=== PATIENT | male | born 1955 | race Caucasian/White ===

== ENCOUNTER 2017-12-08 16:00 | Inpatient (IN) | payer MEDICARE, MEDICAID, SELFPAY ==
--- NOTE | 2017-12-08 10:41 | EKG12_ITS ---
Test Reason : CP Blood Pressure : / mmHG Vent. Rate : 081 BPM Atrial Rate : 081 BPM P-R Int : 164 ms QRS Dur : 112 ms QT Int : 364 ms P-R-T Axes : 050 019 059 degrees QTc Int : 422 ms Poor data quality, interpretation may be adversely affected Normal sinus rhythm with sinus arrhythmia Normal ECG Confirmed by PAWAN HERNANDEZ, SATHYA ([id number]), web content editor JIHAN ROBLES ([id number]) on 12/12/2017 3:17:38 PM Referred By: Confirmed By:SATHYA VILLALTA MD
[2017-12-08 16:01] VITALS: BP 150/99; PULSE 85; RESP 20; TEMP 36.7; O2SAT 98; BMI 25.4
--- NOTE | 2017-12-08 16:30 | CT_ITS ---
STUDY: CT ABDOMEN AND PELVIS WITH CONTRAST REASON FOR EXAM: Male, 61 years old. Abdominal pain RADIATION DOSAGE (If Supplied By Facility): CTDIvol = ( 16.73 ) mGy, DLP = ( 1129.23 ) mGycm TECHNIQUE: Transaxial images were obtained from the dome of the diaphragm to the symphysis pubis without oral contrast. 100ML ml of Isovue 300 contrast was administered. Sagittal and coronal images were reconstructed. Individualized dose optimization techniques were used for this CT. COMPARISON: None. FINDINGS: There is atelectasis at the lung bases. The visualized portions of the heart and pericardium are within normal limits. There are no calcified gallstones present. The gallbladder is distended. The liver is within normal limits. There are no suspicious hepatic lesions. The spleen is normal in size. The pancreas is within normal limits. The adrenal glands are within normal limits. There are no obstructing renal stones. There is no hydronephrosis. There are no focal renal lesions. Normal visualized stomach. There is no bowel obstruction or inflammation. The appendix is visualized and appears normal. There are postsurgical changes noted from prior right inguinal hernia repair. There is no evidence of a recurrent hernia. The aorta is normal in caliber. There is no abdominal or pelvic free air, free fluid or fluid collection. There is periportal lymphadenopathy. There are no destructive osseous lesions. CT/Abdomen/Pelvis WITH Contrast IMPRESSION: Distended gallbladder. No calcified gallstones present. If indicated, further evaluation with ultrasound can be performed. Periportal lymphadenopathy. No bowel obstruction or inflammation. Normal appendix. Postsurgical changes from a prior right inguinal hernia repair. No evidence of a recurrent hernia. Electronically Signed: Philip Landis, at 18:48 EDT Tel , Service support ,
--- NOTE | 2017-12-08 16:31 | ED.VISSUMM ---
- ER Visit Summary Date of Service: 12/08/17 Chief Complaint: Abdominal pain History of Present Illness: The patient is a 61 M who states that 1 hour prior to arrival he had a sudden onset of severe epigastric right upper quadrant and left upper quadrant pain that radiates into his back. He notes nausea but no vomiting. Denies any bloating or distention. No history of pancreatitis. History of small bowel obstruction. Patient had hernia surgery September 21 recovered fine from it. He denies any significant alcohol use. He is a smoker. Physical Examination: Afebrile vital signs are stable Gen: Well-nourished well-developed patient appears in pain Head: Normocephalic atraumatic Eyes: Perrl EOMI ENT: TMs clear no rhinorrhea moist mucous membranes Neck: Supple no lymphadenopathy no JVD nontender CVS: Regular rate rhythm no murmurs normal S1-S2 Respiratory: No distress clear to auscultation bilaterally chest nontender Abdomen: Soft upper abdominal tenderness to palpation with guarding nondistended normal bowel sounds no masses Back: Nontender Extremity: Nontender no edema Skin: Normal color no rash Neuro: alert orientated ?3 CN II-XII intact normal strength sensation reflexes gait cerebellar Test Results: EKG for nursing protocol shows a sinus rhythm at a rate of 81. White count 9.1 with a hemoglobin of 18.4. Glucose of 117. Lipase 599. ALT of 91 AST of 94. Total bili 1.2. Lactic acid normal at 1. Troponin less than 0.02. CT of the abdomen pelvis demonstrates a significantly distended gallbladder. Gallbladder ultrasound showed a negative sonographic Igllis. The common bile duct was 8 mm. Noted no free fluid around the gallbladder. There were probable stones in the gallbladder. Emergency Department Course and Treatment: Given the sudden onset of his symptoms I am concerned about a common bile duct stone causing gallstone pancreatitis. He is very early into his course at the time of blood draw only about 1 hour. Therefore I do not think we have seen the full rise in his lipase or liver enzymes. I gave him Zofran and Dilaudid fluids. We also gave Zosyn. Plan is admission into the hospital. Impression: 1. Gallstone pancreatitis This note was generated with Workspace dictation software. It may contain incorrect words, spelling, and punctuation that were not noted in review of the chart prior to signing ED Disposition - Plan for ED Patient: Disposition: Acute Care Hospital [facility] Chief Complaint: Abd Pain
[2017-12-08] MEDS: proMETHazine 25 MG/ML Syringe 12.5 MG IV (16:41)
[2017-12-08] MEDS: 0.9% Normal Saline 1,000 ML 125 ML IV (16:42)
[2017-12-08] MEDS: HYDROmorphone 1 MG/ML Syringe IV ×2 (16:42→17:59)
[2017-12-08 16:43] VITALS: BP 148/100; PULSE 96; RESP 16; O2SAT 96
[2017-12-08 17:18] LABS: Absolute Lymphocyte Count 2.09 X10^3/ul (0.83-4.51); Absolute Neutrophil Count 5.6 X10^3/uL (2.0-7.7); Basophil# 0.02 X10^3/uL; Basophil% 0.2 % (0-1); Eosinophil# 0.36 X10^3/uL; Hematocrit 54.2 % (40-54); Lymphocyte # 2.09 X10^3/ul (4.0); Lymphocyte % 23.1 % (19-41); Mean Corp Hgb Conc 33.9 g/gl (32-36); Mean Corpuscular Hgb 30.8 pg (27.0-32.0); Mean Corpuscular Volume 90.8 fL (80-94); Mean Platelet Vol. 10.5 fl (6.2-12.0); Monocyte# 1.02 X10^3/uL; Monocyte% 11.3 % (0-10); Neutrophil # 5.56 X10^3/uL (2.7-7.7); Neutrophil % 61.3 % (47-70); Platelet Count 260 K/mm3 (150-450); RBC Distribution Width CV 13.2 % (11.6-14.6); RBC Distribution Width SD 43.6 fl (35.1-43.9); Red Blood Count 5.97 M/mm3 (4.6-6.2); White Blood Count 9.1 K/mm3 (4.4-11.0)
[2017-12-08 17:38] LABS: ALB/GLOB Ratio 1.1 RATIO (0.9-2.4); AST(SGOT) 94 U/L (15-37); Alanine Aminotransfer ALT/SGPT 91 U/L (16-61); Albumin, Serum 4.2 g/dL (3.2-5.0); Alkaline Phosphatase 114 U/L (45-117); Amylase 96 U/L (25-115); Anion Gap 8 (5-15); BUN 15 mg/dL (7-18); BUN/Creat Ratio 14.7 RATIO (10-20); Calcium,Total 8.5 mg/dL (8.5-10.1); Chloride 103 mmol/L (98-107); Creatinine, Serum 1.02 mg/dL (0.70-1.30); EST Glomerular Filtration Rate 79 mL/min (>60); Est Glom Filt Rate - Afr Amer 96 mL/min (>60); Estimated Creatinine Clearance 99.56 ml/min; Globulin 3.9 g/dL (2.2-4.2); Glucose 117 mg/dL (74-106); Lipase 599 U/L (73-393); Protein, Total 8.1 g/dL (6.4-8.2); Sodium Level 140 mmol/L (136-145)
[2017-12-08 17:59] VITALS: BP 133/103; PULSE 106; RESP 17; O2SAT 95
[2017-12-08 18:15] LABS: Hemoglobin 18.4 g/dl (13.0-16.5); POSITIVE COUNT NO; POSITIVE DIFFERENTIAL NO; POSITIVE MORPHOLOGY NO
--- NOTE | 2017-12-08 18:54 | US_ITS ---
STUDY: ABDOMINAL ULTRASOUND - RIGHT UPPER QUADRANT REASON FOR VISIT: Male, 61 years old. Pancreatitis. Pain. TECHNIQUE: Ultrasound evaluation of the right upper quadrant was performed with real-time and static delcid-scale imaging. TECHNICAL QUALITY: Adequate. COMPARISON: CT dated 12/08/2017 FINDINGS: Liver: The liver measures 17.9 cm. There is normal echogenicity of the liver. The bile ducts are within normal limits. There is hepatic color flow. The direction of portal flow is hepatopetal. There is no demonstrated mass lesion. Gallbladder: The gallbladder is distended. The gallbladder wall measures 3 mm. There is a negative sonographic Gillis's sign. There is no pericholecystic fluid. There are multiple echogenic structures within the gallbladder, consistent with multiple gallstones. There is sludge noted in the gallbladder. Common Bile Duct (C.B.D.): The common bile duct measures 8 mm. There are no ductal stones identified. Pancreas: The pancreatic head and body are within normal limits. The tail is not well visualized. There is no demonstrated pancreatic mass or cyst. Right Kidney: Normal size of the right kidney. The right kidney measures 10.2 cm. Normal renal cortex. There is no demonstrated renal mass or cyst. There is no right hydronephrosis. US/Gallbladder IMPRESSION: Distended gallbladder with gallstones and sludge. Borderline gallbladder wall thickening. No pericholecystic fluid. Therefore, there are no definite sonographic findings of acute cholecystitis. The trolley car mechanic reports a negative sonographic Gillis sign. If concern persists, consider further imaging with a nuclear medicine hepatobiliary study. The visualized portions of the pancreas are within normal limits. Correlation with laboratory lipase value is recommended to evaluate for pancreatitis. Mildly dilated common bile duct. Ductal stones identified. Electronically Signed: Philip Landis, at 19:53 EDT Tel , Service support ,
[2017-12-08 19:08] VITALS: PULSE 102; RESP 14; O2SAT 94
[2017-12-08 19:09] LABS: Bacteria 0 SEEN /hpf (None Seen); Mucous, Urine 0 SEEN /hpf (<or=2+); Squamous Epithelial Cells - UA 0 SEEN /hpf (0-5)
[2017-12-08 19:10] LABS: Color, Urine Yellow (Yellow); Glucose, Dipstick Normal (Normal); Ketone-Dipstick Negative (Negative); Leukocyte Esterase-Dipstick Negative /ul (Negative); Nitrite-Dipstick Negative (Negative); Occult Blood-Urine Negative /ul (Negative); Protein-Dipstick 15 mg/dl (Negative); Urine Bilirubin Dipstick Negative (Negative); Urine Clarity Sl. Cloudy (Clear); Urine Urobilinogen 4 mg/dl (Normal)
[2017-12-08 19:22] LABS: White Blood Cells 0-5 SEEN /hpf (0-5)
[2017-12-08 19:25] LABS: Red Blood Cells-Urine 0-5 SEEN /hpf (0-5)
[2017-12-08] MEDS: fentaNYL 100 MCG/2 ML Ampul 75 MCG IV ×2 (20:33→23:24)
[2017-12-08] MEDS: Piperacil/Tazobactam 4.5 GM in NS100 MBP IV (20:52)
[2017-12-08 20:53] VITALS: BP 125/94; PULSE 91; RESP 13; O2SAT 95
[2017-12-08 21:45] VITALS: BMI 26.0
[2017-12-08 22:00] VITALS: BMI 26.0
[2017-12-08 22:11] VITALS: BP 113/74; PULSE 80; RESP 16; TEMP 36.8; O2SAT 95
[2017-12-08] MEDS: MELATONIN 10 MG TABLET PO (22:42)
[2017-12-08] MEDS: CYCLOBENZAPRINE HCL 5 MG TABLET PO (22:42)
--- NOTE | 2017-12-08 23:02 | HP.PCM_ITS ---
Problem List (1) Abdominal pain Status: Acute Qualifiers: Abdominal location: upper abdomen, unspecified Qualified Code(s): R10.10 - Upper abdominal pain, unspecified History of Present Illness Date of Admission: 12/08/17 Chief Complaint: Upper abdominal pain, nausea The patient is a 61 year old M was seen in the emergency room at [facility] with a chief complaint of upper abdominal pain, nausea, and diaphoresis which started approximately 3:30 PM today. Patient stated that the pain was across the entire upper abdomen, it radiated into the mid back, he described the pain as sharp in nature. Patient denies any vomiting, denies any diarrhea, he also denies any fever or chills. Evaluation in the emergency room included labs which showed a normal white blood cell count, hemoglobin was 18.4 , lipase was elevated at 599, bilirubin was 1.2, AST was 94, ALT was 91. Alkaline phosphatase was normal. Patient had a CT of his abdomen and pelvis, it showed a distended gallbladder with no calcified gallstones, there is no bowel obstruction or inflammation, appendix was visualized and was normal. Patient had an ultrasound of the abdomen performed, it showed multiple gallstones with distention of the common bile duct. Patient was given IV Zosyn in the emergency room, hospitalist service was called for admission for gallstone pancreatitis and possible cholecystitis. I talked with Dr. Reyes by phone, he will see the patient in consultation. Past Medical History Allergies No Known Allergies Allergy (Verified 12/08/17 16:01) Home Medications: Ambulatory Orders Medication Instructions Recorded Cyclobenzaprine [Flexeril] 5 mg PO QHS 08/18/15 Gabapentin [Neurontin] 600 mg PO QHS 08/18/15 Lidocaine [Lidoderm Patch] 1 patch TP DAILY 12/08/17 Melatonin 10 mg PO QHS 12/08/17 Sumatriptan Succinate [Imitrex] 50 mg PO PRN PRN 12/08/17 Surgical History: herniorrhaphy Psychiatric History: No pertinent psych hx Lives: Spouse/ Significant Other Smoking Status: Current every day smoker Tobacco Use: Cigarettes Alcohol: Rare Drugs: None - *Family History Maternal History Items: - - MS, valvular heart disease Paternal History Items: Cancer - Lung cancer Review of Systems Constitutional: Denies: Anorexia, Chills, Fever, Night Sweats, Malaise, Weakness , Weight Change, Fatigue Eyes: Denies: Blurred vision, Cataracts, Conjunctivae Inflammation, Double vision, Drainage HEENT: Denies: Difficulty Swallowing, Dysphasia, Ear Pain, Eye Pain, Hearing Changes, Nasal bleeding, Nasal Congestion, Post Nasal Drip Cardiovascular: Denies: Chest Pain, Claudication, Chest Pressure, Chest Tightness, Edema, Heaviness, Orthopnea, Palpitations, Paroxysmal Noc. Dyspnea, Syncope Respiratory: Denies: Cough, Hemoptysis, Pleuritic Pain, Shortness of Breath, Shortness of breath at rest, Shortness of breath upon exertion, Sputum production, Wheezing Gastrointestinal: Reports: Abdominal Pain, Nausea. Denies: Constipation, Diarrhea, Dyspepsia, Hematemesis, Hematochezia, Melena, Vomiting Genitourinary: Denies: Dysuria, Frequency, Hematuria, Hesitancy, Incontinence, Nocturia, Urgency Musculoskeletal: Reports: Back Pain - Patient complains of back pain which had radiated from his right upper abdomen into the mid back area. Denies: Joint Pain, Joint stiffness, Joint swelling Skin: Denies: Dryness, Jaundice, Pruritis, Rash Neurological: Denies: Balance problems, Blurred vision, Double vision, Slurred speech, Difficulty swallowing, Focal weakness, Headaches, Incoordination, Numbness, Tingling Psychiatric: Denies: Anxiety, Depression, Homicidal Ideations, Suicidal Ideations Endocrine: Denies: Change in Body Habitus, Heat/ Cold Intolerance, Polydipsia, Polyuria Hematologic/ Lymphatic: Denies: Adenopathy, Anemia, Easy Bruising, Easy Bleeding , Petechiae, Purpura VTE Information - Inpt Only VTE Present on Admission: No VTE Mechan Device Prophylaxis: SCD's VTE Pharm Prophylaxis ordered?: No Reason prophylaxis not ordered:: Treatment Not Indicated - SCD's were ordered Patient Problems: Active and Suspected Problems Abdominal pain (Acute) - Physical Exam General: Alert, Oriented x3, Cooperative, Well developed, Well nourished, - - Patient is in moderate distress due to upper abdominal pain HEENT: Atraumatic, PERRLA, EOMI, Normocephalic Oral: Moist Mucosa Neck: Supple, No JVD, Negative Carotid Bruits, No Nuchal Rigidity, Trachea Midline, Thyroid Normal Size and Texture Lungs: Clear to auscultation, Normal air movement, No rhonchi, No wheeze, No rales Cardiovascular: Regular rate, Regular Rhythm, Normal S1, Normal S2, No murmurs, No Ectopic Activity, PMI Normal, No rub noted, No Gallop Abdomen: Bowel Sounds Present, Soft, Tender - Is diffuse upper abdominal tenderness noted bilaterally, No hernias noted Extremities: No clubbing, No cyanosis, No edema, Capillary Refill Less than 3 Seconds Skin: No rashes, No breakdown Musculoskeletal: No Tenderness to Palpation of Joints or Extremities Neurological: Cranial nerves II-XII grossly intact, Neuro grossly intact, Muscle tone normal, Sensory exam intact to light touch and pain, Coordination normal Psych/Mental Status: Normal Affect, Appropriate, Alert and oriented to time, place, person, mood and affect Vital Signs Temp Pulse Resp BP Pulse Ox 98.2 F 80 16 113/74 95 12/08/17 22:11 12/08/17 22:11 12/08/17 22:11 12/08/17 22:11 12/08/17 22:11 Oxygen Delivery Method Room Air Weight: 99.564 kg Body Mass Index (BMI) 26.0 Assessment/Plan Active and Suspected Problems Abdominal pain (Acute) #1 gallstone pancreatitis-patient will be admitted to [facility], he will be seen in consultation by general surgery, IV fluids will be administered, IV analgesics will be administered, patient will be n.p.o. 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
[2017-12-08] MEDS: 0.9% NaCl Peripheral Flush Adult/Peds IV (23:24)
[2017-12-09] VITALS (9 sets, daily range): BP systolic 110–132; BP diastolic 67–83; PULSE 49–91; RESP 16–18; TEMP 36.1–36.9; O2SAT 95–99; BMI 26.0
[2017-12-09] MEDS: fentaNYL 100 MCG/2 ML Ampul IV ×6 (02:39→23:16)
[2017-12-09] MEDS: 0.9% Normal Saline 1,000 ML 200 ML IV ×2 (02:39→08:31)
[2017-12-09] MEDS: Piperacil/Tazobactam 3.375 GM/50 ML ML IV ×3 (05:42→22:31)
[2017-12-09 06:56] LABS: Absolute Lymphocyte Count 0.81 X10^3/ul (0.83-4.51); Absolute Neutrophil Count 4.3 X10^3/uL (2.0-7.7); Basophil# 0.01 X10^3/uL; Basophil% 0.2 % (0-1); Eosinophil# 0.28 X10^3/uL; Eosinophils% 4.3 % (0-5); Hematocrit 48.3 % (40-54); Hemoglobin 15.9 g/dl (13.0-16.5); Lymphocyte # 0.81 X10^3/ul (4.0); Lymphocyte % 12.4 % (19-41); Mean Corp Hgb Conc 32.9 g/gl (32-36); Mean Corpuscular Volume 91.1 fL (80-94); Mean Platelet Vol. 10.3 fl (6.2-12.0); Monocyte# 1.08 X10^3/uL; Monocyte% 16.6 % (0-10); Neutrophil # 4.33 X10^3/uL (2.7-7.7); Neutrophil % 66.3 % (47-70); Platelet Count 198 K/mm3 (150-450); RBC Distribution Width CV 13.4 % (11.6-14.6); RBC Distribution Width SD 44.7 fl (35.1-43.9); White Blood Count 6.5 K/mm3 (4.4-11.0)
[2017-12-09 07:04] LABS: POSITIVE COUNT NO; POSITIVE DIFFERENTIAL NO; POSITIVE MORPHOLOGY NO
[2017-12-09 07:17] LABS: ALB/GLOB Ratio 1.1 RATIO (0.9-2.4); AST(SGOT) 284 U/L (15-37); Alanine Aminotransfer ALT/SGPT 262 U/L (16-61); Albumin, Serum 3.2 g/dL (3.2-5.0); Alkaline Phosphatase 130 U/L (45-117); Anion Gap 5 (5-15); BUN 11 mg/dL (7-18); BUN/Creat Ratio 12.3 RATIO (10-20); Calcium,Total 7.9 mg/dL (8.5-10.1); Chloride 108 mmol/L (98-107); Creatinine, Serum 0.89 mg/dL (0.70-1.30); EST Glomerular Filtration Rate 92 mL/min (>60); Est Glom Filt Rate - Afr Amer 112 mL/min (>60); Estimated Creatinine Clearance 111.24 ml/min; Globulin 2.9 g/dL (2.2-4.2); Glucose 91 mg/dL (74-106); Lipase 154 U/L (73-393); Potassium 4.1 mmol/L (3.5-5.1); Protein, Total 6.1 g/dL (6.4-8.2); Sodium Level 140 mmol/L (136-145)
--- NOTE | 2017-12-09 08:35 | PCM.CONS.GEN ---
Problem List (1) Abdominal pain Status: Acute Qualifiers: Abdominal location: upper abdomen, unspecified Qualified Code(s): R10.10 - Upper abdominal pain, unspecified Reason for Consult Date of Consultation: 12/09/17 Reason for Consultation: Right upper quadrant pain and pancreatitis History of Present Illness: The patient is a 61 year old M who began to experience nausea and epigastric and right upper quadrant pain yesterday. He has not had any vomiting. He reports the pain does radiate to the back. He has never had any problems with gallbladder in the past. He does not describe any fevers or chills. Past Medical History Allergies No Known Allergies Allergy (Verified 12/08/17 16:01) Home Medications: Ambulatory Orders Medication Instructions Recorded Cyclobenzaprine [Flexeril] 5 mg PO QHS 08/18/15 Gabapentin [Neurontin] 600 mg PO QHS 08/18/15 Lidocaine [Lidoderm Patch] 1 patch TP DAILY 12/08/17 Melatonin 10 mg PO QHS 12/08/17 Sumatriptan Succinate [Imitrex] 50 mg PO PRN PRN 12/08/17 Surgical History: herniorrhaphy Psychiatric History: No pertinent psych hx Lives: Spouse/ Significant Other Smoking Status: Current every day smoker Tobacco Use: Cigarettes Alcohol: Rare Drugs: None - *Family History Maternal History Items: - - MS, valvular heart disease Paternal History Items: Cancer - Lung cancer Review of Systems Constitutional: Denies: Chills, Fever HEENT: Denies: Difficulty Swallowing Cardiovascular: Denies: Chest Pain Respiratory: Denies: Cough, Shortness of Breath Gastrointestinal: Reports: Abdominal Pain, Nausea. Denies: Vomiting Genitourinary: Denies: Dysuria Musculoskeletal: Reports: Back Pain Skin: Denies: Rash Neurological: Denies: Difficulty swallowing, Focal weakness Hematologic/ Lymphatic: Denies: Anemia Patient Problems: Active and Suspected Problems Abdominal pain (Acute) - Physical Exam General: Alert, Oriented x3, Cooperative, No apparent distress HEENT: Atraumatic, PERRLA, EOMI Oral: Moist Mucosa Lungs: Normal air movement Cardiovascular: Regular rate, Regular Rhythm Abdomen: Soft, Non-Distended, Tender - Tender in the epigastric region in the right upper quadrant with no guarding or rebound. Skin: No rashes Musculoskeletal: No Muscle Wasting Neurological: Cranial nerves II-XII grossly intact Psych/Mental Status: Normal Affect, Appropriate Vital Signs Temp Pulse Resp BP Pulse Ox 98.4 F 74 16 119/77 96 12/09/17 08:32 12/09/17 08:32 12/09/17 08:32 12/09/17 08:32 12/09/17 08:32 Oxygen Delivery Method Room Air Weight: 219 lb 8 oz Body Mass Index (BMI) 26.0 Intake and Output for Last 24 Hours 12/07/17 12/08/17 12/09/17 23:59 23:59 23:59 Intake Total 1679 / 1679 Balance 1679 / 1679 Laboratory Tests Past 24 Hrs 12/09/17 12/09/17 06:20 06:20 WBC 6.5 RBC 5.30 Hgb 15.9 Hct 48.3 MCV 91.1 MCH 30.0 MCHC 32.9 RDW 13.4 RDW Differential 44.7 H Plt Count 198 MPV 10.3 Immature Gran % (Auto) 0.200 Neut % (Auto) 66.3 Lymph % (Auto) 12.4 L Ashley % (Auto) 16.6 H Eos % (Auto) 4.3 Baso % (Auto) 0.2 Absolute Neuts (auto) 4.3 Absolute Lymphs (auto) 0.81 L Total Counted Not Reportable Sodium 140 Potassium 4.1 Chloride 108 H Carbon Dioxide 27.0 Anion Gap 5 BUN 11 Creatinine 0.89 Estim Creat Clear Calc 111.24 Est GFR (MDRD) Af Amer 112 Est GFR (MDRD) Non-Af 92 BUN/Creatinine Ratio 12.3 Glucose 91 Calcium 7.9 L Total Bilirubin 3.50 H AST 284 H ALT 262 H Alkaline Phosphatase 130 H Total Protein 6.1 L Albumin 3.2 Globulin 2.9 Albumin/Globulin Ratio 1.1 Lipase 154 Clinical Impression(s) from Imaging Studies Abdomen/Pelvis CT 12/08/17 16:30 IMPRESSION: Distended gallbladder. No calcified gallstones present. If indicated, further evaluation with ultrasound can be performed. Periportal lymphadenopathy. No bowel obstruction or inflammation. Normal appendix. Postsurgical changes from a prior right inguinal hernia repair. No evidence of a recurrent hernia. Electronically Signed: Philip Landis, at 18:48 EDT Tel , Service support , Gallbladder Ultrasound 12/08/17 18:54 IMPRESSION: Distended gallbladder with gallstones and sludge. Borderline gallbladder wall thickening. No pericholecystic fluid. Therefore, there are no definite sonographic findings of acute cholecystitis. The die maker bench stamping reports a negative sonographic Gillis sign. If concern persists, consider further imaging with a nuclear medicine hepatobiliary study. The visualized portions of the pancreas are within normal limits. Correlation with laboratory lipase value is recommended to evaluate for pancreatitis. Mildly dilated common bile duct. Ductal stones identified. Electronically Signed: Philip Landis, at 19:53 EDT Tel , Service support , Assessment/Plan Active and Suspected Problems Abdominal pain (Acute) 61-year-old male with obstructive jaundice and gallstone pancreatitis and possible acute cholecystitis 1. I did inform the patient that he has borderline thickening of his gallbladder and he may have acute cholecystitis on top of obstructive jaundice and gallstone pancreatitis. His lipase has fallen today. His liver enzymes however have gone up. I explained that this is likely due to a gallstone obstructing his common bile duct. I recommended ERCP. 2. I discussed ERCP in detail with the patient including the risk benefits alternatives. I stalin a diagram for him explaining what I would do and I explained the risks including but not limited to bleeding, perforation of the bile duct or bowels, pancreatitis, infection. The patient understands risks and is willing to proceed with surgery. 3. I recommend continuing n.p.o. on Zosyn for now in case he does have acute cholecystitis. 4. I explained that normally would not be an emergency to take his gallbladder out after ERCP and he could wait until Tuesday however he does have borderline thickening of the gallbladder and right upper quadrant pain. It is possible that he has acute cholecystitis and may need his gallbladder out tomorrow instead. The patient understands and is willing to proceed with surgery tomorrow for laparoscopic cholecystectomy if needed. Enrrique Reyes MD Pager: [facility] [address], [address] [place] [address] Office:
--- NOTE | 2017-12-09 08:38 | CON.PCM_ITS ---
Problem List (1) Abdominal pain Status: Acute Qualifiers: Abdominal location: upper abdomen, unspecified Qualified Code(s): R10.10 - Upper abdominal pain, unspecified Reason for Consult Date of Consultation: 12/09/17 Reason for Consultation: Right upper quadrant pain and pancreatitis History of Present Illness: The patient is a 61 year old M who began to experience nausea and epigastric and right upper quadrant pain yesterday. He has not had any vomiting. He reports the pain does radiate to the back. He has never had any problems with gallbladder in the past. He does not describe any fevers or chills. Past Medical History Allergies No Known Allergies Allergy (Verified 12/08/17 16:01) Home Medications: Ambulatory Orders Medication Instructions Recorded Cyclobenzaprine [Flexeril] 5 mg PO QHS 08/18/15 Gabapentin [Neurontin] 600 mg PO QHS 08/18/15 Lidocaine [Lidoderm Patch] 1 patch TP DAILY 12/08/17 Melatonin 10 mg PO QHS 12/08/17 Sumatriptan Succinate [Imitrex] 50 mg PO PRN PRN 12/08/17 Surgical History: herniorrhaphy Psychiatric History: No pertinent psych hx Lives: Spouse/ Significant Other Smoking Status: Current every day smoker Tobacco Use: Cigarettes Alcohol: Rare Drugs: None - *Family History Maternal History Items: - - MS, valvular heart disease Paternal History Items: Cancer - Lung cancer Review of Systems Constitutional: Denies: Chills, Fever HEENT: Denies: Difficulty Swallowing Cardiovascular: Denies: Chest Pain Respiratory: Denies: Cough, Shortness of Breath Gastrointestinal: Reports: Abdominal Pain, Nausea. Denies: Vomiting Genitourinary: Denies: Dysuria Musculoskeletal: Reports: Back Pain Skin: Denies: Rash Neurological: Denies: Difficulty swallowing, Focal weakness Hematologic/ Lymphatic: Denies: Anemia Patient Problems: Active and Suspected Problems Abdominal pain (Acute) - Physical Exam General: Alert, Oriented x3, Cooperative, No apparent distress HEENT: Atraumatic, PERRLA, EOMI Oral: Moist Mucosa Lungs: Normal air movement Cardiovascular: Regular rate, Regular Rhythm Abdomen: Soft, Non-Distended, Tender - Tender in the epigastric region in the right upper quadrant with no guarding or rebound. Skin: No rashes Musculoskeletal: No Muscle Wasting Neurological: Cranial nerves II-XII grossly intact Psych/Mental Status: Normal Affect, Appropriate Vital Signs Temp Pulse Resp BP Pulse Ox 98.4 F 74 16 119/77 96 12/09/17 08:32 12/09/17 08:32 12/09/17 08:32 12/09/17 08:32 12/09/17 08:32 Oxygen Delivery Method Room Air Weight: 219 lb 8 oz Body Mass Index (BMI) 26.0 Intake and Output for Last 24 Hours 12/07/17 12/08/17 12/09/17 23:59 23:59 23:59 Intake Total 1679 / 1679 Balance 1679 / 1679 Laboratory Tests Past 24 Hrs 12/09/17 12/09/17 06:20 06:20 WBC 6.5 RBC 5.30 Hgb 15.9 Hct 48.3 MCV 91.1 MCH 30.0 MCHC 32.9 RDW 13.4 RDW Differential 44.7 H Plt Count 198 MPV 10.3 Immature Gran % (Auto) 0.200 Neut % (Auto) 66.3 Lymph % (Auto) 12.4 L [place] % (Auto) 16.6 H Eos % (Auto) 4.3 Baso % (Auto) 0.2 Absolute Neuts (auto) 4.3 Absolute Lymphs (auto) 0.81 L Total Counted Not Reportable Sodium 140 Potassium 4.1 Chloride 108 H Carbon Dioxide 27.0 Anion Gap 5 BUN 11 Creatinine 0.89 Estim Creat Clear Calc 111.24 Est GFR (MDRD) Af Amer 112 Est GFR (MDRD) Non-Af 92 BUN/Creatinine Ratio 12.3 Glucose 91 Calcium 7.9 L Total Bilirubin 3.50 H AST 284 H ALT 262 H Alkaline Phosphatase 130 H Total Protein 6.1 L Albumin 3.2 Globulin 2.9 Albumin/Globulin Ratio 1.1 Lipase 154 Clinical Impression(s) from Imaging Studies Abdomen/Pelvis CT 12/08/17 16:30 IMPRESSION: Distended gallbladder. No calcified gallstones present. If indicated, further evaluation with ultrasound can be performed. Periportal lymphadenopathy. No bowel obstruction or inflammation. Normal appendix. Postsurgical changes from a prior right inguinal hernia repair. No evidence of a recurrent hernia. Electronically Signed: Philip Landis, at 18:48 EDT Tel , Service support , Gallbladder Ultrasound 12/08/17 18:54 IMPRESSION: Distended gallbladder with gallstones and sludge. Borderline gallbladder wall thickening. No pericholecystic fluid. Therefore, there are no definite sonographic findings of acute cholecystitis. The clarity developer reports a negative sonographic Gillis sign. If concern persists, consider further imaging with a nuclear medicine hepatobiliary study. The visualized portions of the pancreas are within normal limits. Correlation with laboratory lipase value is recommended to evaluate for pancreatitis. Mildly dilated common bile duct. Ductal stones identified. Electronically Signed: Philip Landis, at 19:53 EDT Tel , Service support , Assessment/Plan Active and Suspected Problems Abdominal pain (Acute) 61-year-old male with obstructive jaundice and gallstone pancreatitis and possible acute cholecystitis 1. I did inform the patient that he has borderline thickening of his gallbladder and he may have acute cholecystitis on top of obstructive jaundice and gallstone pancreatitis. His lipase has fallen today. His liver enzymes however have gone up. I explained that this is likely due to a gallstone obstructing his common bile duct. I recommended ERCP. 2. I discussed ERCP in detail with the patient including the risk benefits alternatives. I stalin a diagram for him explaining what I would do and I explained the risks including but not limited to bleeding, perforation of the bile duct or bowels, pancreatitis, infection. The patient understands risks and is willing to proceed with surgery. 3. I recommend continuing n.p.o. on Zosyn for now in case he does have acute cholecystitis. 4. I explained that normally would not be an emergency to take his gallbladder out after ERCP and he could wait until Tuesday however he does have borderline thickening of the gallbladder and right upper quadrant pain. It is possible that he has acute cholecystitis and may need his gallbladder out tomorrow instead. The patient understands and is willing to proceed with surgery tomorrow for laparoscopic cholecystectomy if needed. Enrrique Reyes MD Pager: [facility] [address], [address] [place] [address] Office:
--- NOTE | 2017-12-09 09:30 | GALL_PTH ---
PATIENT: NARENDRA LAI LOC: MS3 U#:[id number] AGE/SX: 61/M ROOM: NH323 RE12/08/[address]: Dr. Chani Shepherd DO : 1955 BED: 1 DIS: 12/11/2017 SPEC #: [id number] RECD: 12/12/17 07:39 STATUS: RUTH ANN REJanneth #: [id number] FLAQUITA: 12/09/17 09:[address]: Enrrique Reyes DEPT: SURGICAL PATHOLOGY RECD BY: Wyatt Spicer ENTERED: 12/12/17 11:05 SP TYPE: GALLBLADDE OTHR DR: MD Dr. Chani Coronel DO Dr. Mark Tereletsky, DO Out of [facility] Doctor Tissues: Gallbladder, NOS Procedures: Surgery Specimen Level III Comments: @ Ordering doctor for SUIII edited from to @ by JOLYNN at 12/12/17 1519 @ Submitting doctor edited from to @ by RGOOD at 12/12/17 1519 HEADER OPERATION: Laparoscopic cholecystectomy with IOC PRE-OP DIAGNOSIS: Cholecystitis TISSUE SUBMITTED: Gallbladder MICROSCOPIC DIAGNOSIS Gallbladder, cholecystectomy: Chronic cholecystitis and cholelithiasis. Adherent hepatic tissue with mild chronic inflammation and vascular congestion. AM:jennifer 12/13/17 MICROSCOPIC DESCRIPTION Slides are reviewed. GROSS DESCRIPTION Received is one container labeled with the patient's name and designated gallbladder. The specimen consists of a previously opened gallbladder measuring 9 x 4 x 2 cm. The external surface is smooth and glistening. Focally, it is granular, hemorrhagic and contains cautery artifact. The lumen of the gallbladder contains several chalky white calculi ranging in size from 0.2 to 0.7 cm. The gallbladder mucosa is bile-stained. No distinct mass lesions are identified. The gallbladder wall averages 0.2 cm in thickness. Quality Management Coordinator sections of the gallbladder and the cystic duct are submitted in one cassette. / AM:jennifer 12/12/17 TC:3 CPT: 19776
--- NOTE | 2017-12-09 13:29 | NURSING ---
REPORT CALLED TO ENDO AROUND [id number]
--- NOTE | 2017-12-09 14:00 | CASEMGMT ---
RN CM attempted to compete face to face with patient. Patient is not in room and is having a procedure done. RN CM will attempt to complete assessment at a later time.
--- NOTE | 2017-12-09 14:10 | RAD_ITS ---
STUDY: ERCP. REASON FOR EXAM: Male, 61 years old. Retained common bile duct stone. FLUOROSCOPY TIME (if supplied): (2:06) minutes/seconds TECHNIQUE: An ERCP was performed by the surgeon. Contrast was injected into the common bile duct. COMPARISON: None. FINDINGS: A small filling defect is seen in the distal common bile duct. A balloon catheter was then placed for stone removal. RAD/ERCP Biliary Only IMPRESSION: ERCP for common bile duct stone removal. Electronically Signed: Tomas Avalos MD at 15:54 EDT Tel [phone], Service support ,
--- NOTE | 2017-12-09 14:17 | CASEMGMT ---
See RN CM Assessment Link. DC PLAN: home. Pt for nila hendrix 12/09. No dc needs identified. Hilary DEL ANGELN RN ACM
--- NOTE | 2017-12-09 14:44 | PCM.PROGNOTE ---
Patient Problems: Active and Suspected Problems Abdominal pain (Acute) Subjective: Pt complains of midepigastric and RUQ pain radiating in to the back. He denies diarrhea or constipation. He reported fevers and chills yesterday which have resolved. He thought he noticed his hands turning yellow. He is agreeable to ERCP and possible cholecystectomy if need be. No nausea or vomiting. States only other medical problem is post herpetic neuralgia for which he is on neurontin. - Physical Exam General: Alert, Oriented x3, Cooperative HEENT: Atraumatic, PERRLA, EOMI, Normocephalic Neck: Supple, No JVD, Negative Carotid Bruits Lungs: Clear to auscultation, Normal air movement Cardiovascular: Regular rate, No murmurs Abdomen: Hypoactive Bowel Sounds, Guarding - mild guarding., Tender - to light palp RUQ, epigastric, LUQ. Extremities: No edema, Capillary Refill Less than 3 Seconds Skin: No rashes, No breakdown Musculoskeletal: No Tenderness to Palpation of Joints or Extremities Neurological: Cranial nerves II-XII grossly intact Psych/Mental Status: Normal Affect, Appropriate, Alert and oriented to time, place, person, mood and affect Vital Signs Temp Pulse Resp BP Pulse Ox 97.8 F 91 18 123/79 H 98 12/09/17 12:20 12/09/17 12:20 12/09/17 12:20 12/09/17 12:20 12/09/17 12:20 Oxygen Delivery Method Room Air Weight: 99.564 kg Body Mass Index (BMI) 26.0 Intake and Output for Last 24 Hours 12/07/17 12/08/17 12/09/17 23:59 23:59 23:59 Intake Total 3006 / 3006 Balance 3006 / 3006 Laboratory Tests Past 24 Hrs 12/09/17 12/09/17 06:20 06:20 WBC 6.5 RBC 5.30 Hgb 15.9 Hct 48.3 MCV 91.1 MCH 30.0 MCHC 32.9 RDW 13.4 RDW Differential 44.7 H Plt Count 198 MPV 10.3 Immature Gran % (Auto) 0.200 Neut % (Auto) 66.3 Lymph % (Auto) 12.4 L [place] % (Auto) 16.6 H Eos % (Auto) 4.3 Baso % (Auto) 0.2 Absolute Neuts (auto) 4.3 Absolute Lymphs (auto) 0.81 L Total Counted Not Reportable Sodium 140 Potassium 4.1 Chloride 108 H Carbon Dioxide 27.0 Anion Gap 5 BUN 11 Creatinine 0.89 Estim Creat Clear Calc 111.24 Est GFR (MDRD) Af Amer 112 Est GFR (MDRD) Non-Af 92 BUN/Creatinine Ratio 12.3 Glucose 91 Calcium 7.9 L Total Bilirubin 3.50 H AST 284 H ALT 262 H Alkaline Phosphatase 130 H Total Protein 6.1 L Albumin 3.2 Globulin 2.9 Albumin/Globulin Ratio 1.1 Lipase 154 Medical Necessity - Tobacco Use Smoking Status: Current every day smoker Tobacco Use: Cigarettes Assessment/Plan Active and Suspected Problems Abdominal pain (Acute) 1. Acute gallstone pancreatitis - ERCP today. Concern for cholangitis. Reported fevers and chills at home but afebrile here. Elevated bili but his eyes and hands do not appear jaundiced at this time. Significant RUQ pain. Lipase decreased. Liver enzymes are increased. Continue Zosyn. ERCP done. CT abdomen showed distended gallbladder, periportal lymphadenopathy. Dr. Reyes is following. No leukocytosis or fever. 2.Postherpetic neuralgia - neurontin. DVT ppx: SCDs DC planning: dispo pending results of ERCP and need for further surgery. This patient was seen by Jonas Boo PA-C under the supervision of Doctor Shepherd.
--- NOTE | 2017-12-09 15:00 | PCM.OPRPT ---
Problem List (1) Abdominal pain Status: Acute Qualifiers: Abdominal location: upper abdomen, unspecified Qualified Code(s): R10.10 - Upper abdominal pain, unspecified (2) Choledocholithiasis with obstruction Status: Acute Qualifiers: Cholecystitis presence: without cholecystitis Qualified Code(s): K80.51 - Calculus of bile duct without cholangitis or cholecystitis with obstruction Report of Operation Date of Procedure: 12/09/17 Pre-Operative Diagnosis: Obstructive jaundice Post-Operative Diagnosis: Choledocholithiasis with obstruction Surgery/Procedure Performed:: ERCP with sphincterotomy and stone removal Description of Procedure: After describing the risks of the procedure as well as the procedure in detail informed consent was obtained. Patient was brought to the operating room and general anesthesia was induced. The patient was then placed in a semi-prone position. Next, the side-viewing endoscope was placed into the mouth and down into the stomach and advanced into the duodenum. The ampulla was located. A sphinctertome was used to cannulate the common bile duct and location was confirmed on fluoroscopy. The guidewire was placed in the common bile duct and using sphincterotome and electrocautery a sphincterotomy was performed. Hemostasis was good. Next the sphincterotome was removed leaving the guidewire in the common bile duct. A balloon was then introduced over the guidewire and the common bile duct and several sweeps were performed. There was a small stone removed from the common bile duct. Once the duct was adequately clear of stones. The balloon was removed as well as the guidewire. The side-viewing scope was then withdrawn back into the stomach and the stomach was suctioned. Next, the scope was removed. The patient was taken to PACU in stable condition. The patient tolerated the procedure well.
[2017-12-09] MEDS: 0.9% NaCl Peripheral Flush Adult/Peds IV ×3 (15:56→23:16)
[2017-12-09] MEDS: Lidocaine 5% Patch 1 PATCH TOPICAL (16:10)
[2017-12-09] MEDS: 0.9% Normal Saline 1,000 ML 125 ML IV (17:01)
[2017-12-09] MEDS: MELATONIN 10 MG TABLET PO (22:30)
[2017-12-09] MEDS: CYCLOBENZAPRINE HCL 5 MG TABLET PO (22:30)
[2017-12-09] MEDS: Gabapentin 600 MG Tablet PO (22:30)
[2017-12-10] VITALS (12 sets, daily range): BP systolic 109–164; BP diastolic 71–94; PULSE 54–110; RESP 14–18; TEMP 36.5–37.2; O2SAT 92–98; BMI 26.0
[2017-12-10] MEDS: 0.9% Normal Saline 1,000 ML 125 ML IV ×3 (03:30→23:41)
[2017-12-10] MEDS: fentaNYL 100 MCG/2 ML Ampul IV (04:13)
[2017-12-10] MEDS: Piperacil/Tazobactam 3.375 GM/50 ML ML IV (05:17)
[2017-12-10] MEDS: Morphine 4 MG/ML Syringe IV (05:17)
[2017-12-10 06:55] LABS: Absolute Lymphocyte Count 1.07 X10^3/ul (0.83-4.51); Basophil# 0.04 X10^3/uL; Eosinophil# 0.32 X10^3/uL; Eosinophils% 7.8 % (0-5); Hematocrit 44.9 % (40-54); Hemoglobin 14.8 g/dl (13.0-16.5); Lymphocyte # 1.07 X10^3/ul (4.0); Lymphocyte % 26.2 % (19-41); Mean Corpuscular Hgb 30.3 pg (27.0-32.0); Mean Corpuscular Volume 91.8 fL (80-94); Mean Platelet Vol. 10.1 fl (6.2-12.0); Monocyte# 0.66 X10^3/uL; Monocyte% 16.1 % (0-10); Neutrophil % 48.9 % (47-70); Platelet Count 204 K/mm3 (150-450); RBC Distribution Width CV 13.7 % (11.6-14.6); RBC Distribution Width SD 45.6 fl (35.1-43.9); Red Blood Count 4.89 M/mm3 (4.6-6.2); White Blood Count 4.1 K/mm3 (4.4-11.0)
--- NOTE | 2017-12-10 06:55 | PCM.PN.SRG ---
Patient Problems: Active and Suspected Problems Abdominal pain (Acute) Choledocholithiasis with obstruction (Acute) Subjective: Patient reports he is still having epigastric and right upper quadrant pain. He does not have any nausea or vomiting. He reports he is passing a little bit of gas. - Physical Exam General: Alert, Oriented x3, Cooperative, No apparent distress HEENT: Atraumatic, PERRLA, EOMI Oral: Moist Mucosa Lungs: Normal air movement Cardiovascular: Regular rate, Regular Rhythm Abdomen: Soft, Non-Distended, Tender - Tender in the right upper quadrant no guarding or rebound Musculoskeletal: No Muscle Wasting Vital Signs Temp Pulse Resp BP Pulse Ox 97.7 F L 54 L 16 109/73 96 12/10/17 01:18 12/10/17 01:18 12/10/17 01:18 12/10/17 01:18 12/10/17 01:18 Oxygen Delivery Method Room Air Weight: 219 lb 8.017 oz Body Mass Index (BMI) 26.0 Intake and Output for Last 24 Hours 12/08/17 12/09/17 12/10/17 23:59 23:59 23:59 Intake Total 3906 / 3906 2502.8 / 2502.8 Output Total 475 / 475 Balance 3906 / 3906 2027.8 / 2027.8 Laboratory Tests Past 24 Hrs 12/09/17 12/09/17 12/10/17 06:20 06:20 06:20 WBC 6.5 Pending RBC 5.30 Pending Hgb 15.9 Pending Hct 48.3 Pending MCV 91.1 Pending MCH 30.0 Pending MCHC 32.9 Pending RDW 13.4 Pending RDW Differential 44.7 H Pending Plt Count 198 Pending MPV 10.3 Immature Gran % (Auto) 0.200 Neut % (Auto) 66.3 Pending Lymph % (Auto) 12.4 L [place] % (Auto) 16.6 H Eos % (Auto) 4.3 Baso % (Auto) 0.2 Absolute Neuts (auto) 4.3 Pending Absolute Lymphs (auto) 0.81 L Total Counted Not Reportable Pending Sodium 140 Potassium 4.1 Chloride 108 H Carbon Dioxide 27.0 Anion Gap 5 BUN 11 Creatinine 0.89 Estim Creat Clear Calc 111.24 Est GFR (MDRD) Af Amer 112 Est GFR (MDRD) Non-Af 92 BUN/Creatinine Ratio 12.3 Glucose 91 Calcium 7.9 L Total Bilirubin 3.50 H AST 284 H ALT 262 H Alkaline Phosphatase 130 H Total Protein 6.1 L Albumin 3.2 Globulin 2.9 Albumin/Globulin Ratio 1.1 Lipase 154 12/10/17 06:20 WBC RBC Hgb Hct MCV MCH MCHC RDW RDW Differential Plt Count MPV Immature Gran % (Auto) Neut % (Auto) Lymph % (Auto) [place] % (Auto) Eos % (Auto) Baso % (Auto) Absolute Neuts (auto) Absolute Lymphs (auto) Total Counted Sodium Pending Potassium Pending Chloride Pending Carbon Dioxide Pending Anion Gap Pending BUN Pending Creatinine Pending Estim Creat Clear Calc Est GFR (MDRD) Af Amer Pending Est GFR (MDRD) Non-Af Pending BUN/Creatinine Ratio Pending Glucose Pending Calcium Pending Total Bilirubin Pending AST Pending ALT Pending Alkaline Phosphatase Pending Total Protein Pending Albumin Pending Globulin Albumin/Globulin Ratio Lipase Clinical Impression(s) from Imaging Studies ERCP X-Ray 12/09/17 14:10 IMPRESSION: ERCP for common bile duct stone removal. Electronically Signed: Tomas Avalos MD at 15:54 EDT Tel [phone], Service support , Medical Necessity - Tobacco Use Smoking Status: Current every day smoker Tobacco Use: Cigarettes Assessment/Plan Active and Suspected Problems Abdominal pain (Acute) Choledocholithiasis with obstruction (Acute) 61-year-old male with choledocholithiasis and obstructive jaundice and possible acute cholecystitis 1. The patient had successful ERCP with stone removal yesterday in OR. LFTs are pending for today. 2. The patient still has right upper quadrant pain and on his ultrasound yesterday he had borderline thickening of the gallbladder. I believe he may have acute cholecystitis on top of his choledocholithiasis. I would like to taken today for laparoscopic cholecystectomy both to remove the possibly infected gallbladder and to prevent further episodes of obstructive jaundice. 3. I discussed the procedure in detail with the patient. I discussed the risks, benefits, and alternatives of the procedure. I discussed the risks including but not limited to bleeding, infection, injury to surrounding organs such as the liver, bile duct, bowels. I did discuss the possibility of having to convert to an open procedure as well as the possibility that if any injuries occurred this may necessitate further surgery at a tertiary care center. The patient agrees to proceed with the procedure. 4. I will also check a lipase to check for postoperative pancreatitis flareup Enrrique Reyes MD Pager: [facility] [address] [place] [address] [address] [place] [address] Office:
--- NOTE | 2017-12-10 06:58 | PN.SURG_ITS ---
Patient Problems: Active and Suspected Problems Abdominal pain (Acute) Choledocholithiasis with obstruction (Acute) Subjective: Patient reports he is still having epigastric and right upper quadrant pain. He does not have any nausea or vomiting. He reports he is passing a little bit of gas. - Physical Exam General: Alert, Oriented x3, Cooperative, No apparent distress HEENT: Atraumatic, PERRLA, EOMI Oral: Moist Mucosa Lungs: Normal air movement Cardiovascular: Regular rate, Regular Rhythm Abdomen: Soft, Non-Distended, Tender - Tender in the right upper quadrant no guarding or rebound Musculoskeletal: No Muscle Wasting Vital Signs Temp Pulse Resp BP Pulse Ox 97.7 F L 54 L 16 109/73 96 12/10/17 01:18 12/10/17 01:18 12/10/17 01:18 12/10/17 01:18 12/10/17 01:18 Oxygen Delivery Method Room Air Weight: 219 lb 8.017 oz Body Mass Index (BMI) 26.0 Intake and Output for Last 24 Hours 12/08/17 12/09/17 12/10/17 23:59 23:59 23:59 Intake Total 3906 / 3906 2502.8 / 2502.8 Output Total 475 / 475 Balance 3906 / 3906 2027.8 / 2027.8 Laboratory Tests Past 24 Hrs 12/09/17 12/09/17 12/10/17 06:20 06:20 06:20 WBC 6.5 Pending RBC 5.30 Pending Hgb 15.9 Pending Hct 48.3 Pending MCV 91.1 Pending MCH 30.0 Pending MCHC 32.9 Pending RDW 13.4 Pending RDW Differential 44.7 H Pending Plt Count 198 Pending MPV 10.3 Immature Gran % (Auto) 0.200 Neut % (Auto) 66.3 Pending Lymph % (Auto) 12.4 L [place] % (Auto) 16.6 H Eos % (Auto) 4.3 Baso % (Auto) 0.2 Absolute Neuts (auto) 4.3 Pending Absolute Lymphs (auto) 0.81 L Total Counted Not Reportable Pending Sodium 140 Potassium 4.1 Chloride 108 H Carbon Dioxide 27.0 Anion Gap 5 BUN 11 Creatinine 0.89 Estim Creat Clear Calc 111.24 Est GFR (MDRD) Af Amer 112 Est GFR (MDRD) Non-Af 92 BUN/Creatinine Ratio 12.3 Glucose 91 Calcium 7.9 L Total Bilirubin 3.50 H AST 284 H ALT 262 H Alkaline Phosphatase 130 H Total Protein 6.1 L Albumin 3.2 Globulin 2.9 Albumin/Globulin Ratio 1.1 Lipase 154 12/10/17 06:20 WBC RBC Hgb Hct MCV MCH MCHC RDW RDW Differential Plt Count MPV Immature Gran % (Auto) Neut % (Auto) Lymph % (Auto) [place] % (Auto) Eos % (Auto) Baso % (Auto) Absolute Neuts (auto) Absolute Lymphs (auto) Total Counted Sodium Pending Potassium Pending Chloride Pending Carbon Dioxide Pending Anion Gap Pending BUN Pending Creatinine Pending Estim Creat Clear Calc Est GFR (MDRD) Af Amer Pending Est GFR (MDRD) Non-Af Pending BUN/Creatinine Ratio Pending Glucose Pending Calcium Pending Total Bilirubin Pending AST Pending ALT Pending Alkaline Phosphatase Pending Total Protein Pending Albumin Pending Globulin Albumin/Globulin Ratio Lipase Clinical Impression(s) from Imaging Studies ERCP X-Ray 12/09/17 14:10 IMPRESSION: ERCP for common bile duct stone removal. Electronically Signed: Tomas Avalos MD at 15:54 EDT Tel [phone], Service support , Medical Necessity - Tobacco Use Smoking Status: Current every day smoker Tobacco Use: Cigarettes Assessment/Plan Active and Suspected Problems Abdominal pain (Acute) Choledocholithiasis with obstruction (Acute) 61-year-old male with choledocholithiasis and obstructive jaundice and possible acute cholecystitis 1. The patient had successful ERCP with stone removal yesterday in OR. LFTs are pending for today. 2. The patient still has right upper quadrant pain and on his ultrasound yesterday he had borderline thickening of the gallbladder. I believe he may have acute cholecystitis on top of his choledocholithiasis. I would like to taken today for laparoscopic cholecystectomy both to remove the possibly infected gallbladder and to prevent further episodes of obstructive jaundice. 3. I discussed the procedure in detail with the patient. I discussed the risks , benefits, and alternatives of the procedure. I discussed the risks including but not limited to bleeding, infection, injury to surrounding organs such as the liver, bile duct, bowels. I did discuss the possibility of having to convert to an open procedure as well as the possibility that if any injuries occurred this may necessitate further surgery at a tertiary care center. The patient agrees to proceed with the procedure. 4. I will also check a lipase to check for postoperative pancreatitis flareup Enrrique Reyes MD Pager: [facility] [address] [place] [address] [address] [place] [address] Office:
[2017-12-10 07:01] LABS: POSITIVE COUNT NO; POSITIVE DIFFERENTIAL NO; POSITIVE MORPHOLOGY NO
--- NOTE | 2017-12-10 07:06 | RAD_ITS ---
PROCEDURE: INTRAOPERATIVE CHOLANGIOGRAM. REASON FOR EXAM: Male, 61 years old. Cholelithiasis, cholecystitis. FLUOROSCOPY TIME (if supplied): ( ) minutes/seconds TECHNIQUE: Real-time fluoroscopy was provided during intraoperative contrast infusion via the cystic duct. COMPARISON: CT abdomen and pelvis as well as right upper quadrant ultrasound December 08, 2017. ERCP December 09, 2017. FINDINGS: Normal caliber intra-and extrahepatic bile ducts. No filling defects or strictures seen. Contrast flows to the duodenum. The gallbladder is opacified and/or there is extravasation near the injection site. RAD/Cholangiogram/ O R,Initial IMPRESSION: Normal intraoperative cholangiogram. Electronically Signed: Kimani Gee MD at 14:07 EDT , Service support ,
[2017-12-10 07:13] LABS: ALB/GLOB Ratio 1.1 RATIO (0.9-2.4); AST(SGOT) 124 U/L (15-37); Alanine Aminotransfer ALT/SGPT 187 U/L (16-61); Albumin, Serum 3.1 g/dL (3.2-5.0); Alkaline Phosphatase 149 U/L (45-117); Anion Gap 6 (5-15); BUN 7 mg/dL (7-18); BUN/Creat Ratio 7.5 RATIO (10-20); Calcium,Total 7.9 mg/dL (8.5-10.1); Chloride 107 mmol/L (98-107); Creatinine, Serum 0.94 mg/dL (0.70-1.30); EST Glomerular Filtration Rate 87 mL/min (>60); Est Glom Filt Rate - Afr Amer 106 mL/min (>60); Estimated Creatinine Clearance 105.32 ml/min; Globulin 2.9 g/dL (2.2-4.2); Glucose 90 mg/dL (74-106); Potassium 3.8 mmol/L (3.5-5.1); Sodium Level 141 mmol/L (136-145)
[2017-12-10 07:37] LABS: Lipase 213 U/L (73-393)
[2017-12-10] MEDS: Bupivacaine Mpf 0.5% 30 ML VIAL (10:15)
--- NOTE | 2017-12-10 10:26 | PCM.OPRPT ---
Problem List (1) Abdominal pain Status: Acute Qualifiers: Abdominal location: upper abdomen, unspecified Qualified Code(s): R10.10 - Upper abdominal pain, unspecified (2) Choledocholithiasis with obstruction Status: Acute Qualifiers: Cholecystitis presence: without cholecystitis Qualified Code(s): K80.51 - Calculus of bile duct without cholangitis or cholecystitis with obstruction Report of Operation Date of Procedure: 12/10/17 Pre-Operative Diagnosis: Gallstone pancreatitis with choledocholithiasis Post-Operative Diagnosis: Choledocholithiasis with acute cholecystitis Surgery/Procedure Performed:: Laparoscopic cholecystectomy with cholangiogram Specimen's removed: Gallbladder and contents Description of Procedure: After obtaining informed consent patient was brought back to the operating room. General anesthesia was induced. The abdomen was prepped and draped in usual sterile fashion. A small midline incision was made superior to the umbilicus and deepened to the level of fascia. The fascia was elevated and incised. Next the peritoneum was elevated and incised in the same fashion. Finger sweep was performed and the Preston trocar was placed into the abdomen. The balloon was inflated. The abdomen was inflated to 15 mmHg. Next a camera was introduced into the abdomen and the abdomen was inspected. Next under direct visualization three 5-mm ports were placed one subxiphoid and 2 subcostal. The gallbladder was very inflamed and needed to be drained. An aspiration needle was placed into the gallbladder and it was suctioned. Purulent material was aspirated from the gallbladder. Next the gallbladder was elevated and retracted toward the right shoulder. The peritoneum was stripped from the gallbladder. The infundibulum was located and retracted laterally. Next the triangle of Calot was dissected and the cystic duct and cystic artery were identified. Cholangiograms were performed. The Murdock catheter was used to clamp across the infundibulum and the needle was inserted into the gallbladder. Under fluoroscopy contrast was instilled into the gallbladder. There appeared to be a blockage of the cystic duct. The Murdock catheter was removed. Next a small incision was made in the cystic duct and it was milked backward until the stone was moved back into the gallbladder. Next a Ranfac catheter was placed into the cystic duct and a clip was placed over it. The cholangiograms were then performed through this catheter. There was good filling of the duodenum. There were no filling defects noted in the common bile duct. The clip was removed as well as the catheter and the infundibulum was grasped once more. Three hemolock clips were placed across the cystic duct. The cystic duct was then divided leaving 2 clips on the stump. The cystic artery was clipped and divided in the same fashion. The hook cautery was then used to take the gallbladder off of the gallbladder bed. Hemostasis was obtained using the argon beam. Once hemostasis was obtained and the right upper quadrant was irrigated and the aspirate was clean, the camera switched to a 5 mm camera and introduced in the subxiphoid port. An Endopouch bag was placed through the umbilical port and the gallbladder was placed into it. The gallbladder was then removed through the umbilical incision. The camera was then reinserted through the umbilical port. The gallbladder fossa was inspected once more and noted to be hemostatic with no leaking bile. The abdomen was suctioned dry the 5 mm ports were removed under direct visualization. The umbilical port was then removed and the air was removed from the abdomen. Next using an 0 Vicryl suture the umbilical fascia was closed in a [id number] fashion. The umbilical port site was irrigated local anesthetic was administered to all the incisions. All the incisions were closed subcuticular 4-0 Monocryl sutures followed by Steri-Strips and dressings. The patient was awoken and taken to PACU in stable condition. - Admit VTE Documentation VTE Mechan Device Prophylaxis: SCD's
[2017-12-10] MEDS: LORazepam 2 MG/ML Syringe 0.5 MG IV (11:06)
[2017-12-10] MEDS: Lidocaine 5% Patch 1 PATCH TOPICAL (12:58)
--- NOTE | 2017-12-10 13:47 | PN_ITS ---
Patient Problems: Active and Suspected Problems Abdominal pain (Acute) Choledocholithiasis with obstruction (Acute) Subjective: The patient was seen and examined post op. He was still having RUQ pain this AM so he was taken for cholecystectomy. He is now post op complaining of significant pain still. He denies SOB but does feel pain with deep inspiration in his RUQ. He has no fevers or chills. Intermittent non productive cough. Currently no nausea. Requesting pain medication. - Physical Exam General: Alert, Oriented x3, Cooperative HEENT: Atraumatic, PERRLA, EOMI, Normocephalic Neck: Supple, No JVD, Negative Carotid Bruits Lungs: Clear to auscultation, Normal air movement Cardiovascular: Regular rate, No murmurs Abdomen: Hypoactive Bowel Sounds, Tender - RUQ, midepigastric Extremities: No edema, Capillary Refill Less than 3 Seconds Skin: No rashes, No breakdown Musculoskeletal: No Tenderness to Palpation of Joints or Extremities Neurological: Cranial nerves II-XII grossly intact Psych/Mental Status: Normal Affect, Appropriate, Alert and oriented to time, place, person, mood and affect Vital Signs Temp Pulse Resp BP Pulse Ox 98 F 99 16 131/71 H 98 12/10/17 13:00 12/10/17 13:00 12/10/17 13:00 12/10/17 13:00 12/10/17 13:00 Oxygen Flow Rate (L/min) 2 Oxygen Delivery Method Nasal Cannula Weight: 99.564 kg Body Mass Index (BMI) 26.0 Intake and Output for Last 24 Hours 12/08/17 12/09/17 12/10/17 23:59 23:59 23:59 Intake Total 3906 / 3906 5543.6 / 5543.6 Output Total 475 / 475 Balance 3906 / 3906 5068.6 / 5068.6 Laboratory Tests Past 24 Hrs 12/10/17 12/10/17 12/10/17 06:20 06:20 06:20 WBC 4.1 L RBC 4.89 Hgb 14.8 Hct 44.9 MCV 91.8 MCH 30.3 MCHC 33.0 RDW 13.7 RDW Differential 45.6 H Plt Count 204 MPV 10.1 Immature Gran % (Auto) 0.000 Neut % (Auto) 48.9 Lymph % (Auto) 26.2 [place] % (Auto) 16.1 H Eos % (Auto) 7.8 H Baso % (Auto) 1.0 Absolute Neuts (auto) 2.0 Absolute Lymphs (auto) 1.07 Total Counted Not Reportable Sodium 141 Potassium 3.8 Chloride 107 Carbon Dioxide 28.0 Anion Gap 6 BUN 7 Creatinine 0.94 Estim Creat Clear Calc 105.32 Est GFR (MDRD) Af Amer 106 Est GFR (MDRD) Non-Af 87 BUN/Creatinine Ratio 7.5 L Glucose 90 Calcium 7.9 L Total Bilirubin 5.00 H AST 124 H ALT 187 H Alkaline Phosphatase 149 H Total Protein 6.0 L Albumin 3.1 L Globulin 2.9 Albumin/Globulin Ratio 1.1 Lipase 213 Medical Necessity - Tobacco Use Smoking Status: Current every day smoker Tobacco Use: Cigarettes Assessment/Plan Active and Suspected Problems Abdominal pain (Acute) Choledocholithiasis with obstruction (Acute) 1. Acute gallstone pancreatitis, cholecystitis - ERCP yesterday with stone removed. Bili continued to rise and further RUQ pain today so he underwent a cholecystectomy with Dr. Reyes today. Continued on zosyn. Purulent material as aspirated from the GB, and there was a blockage in the common bile duct per the surgical note. CBC/CMP in the AM. LFTs decreasing, T bili had increased again. Afebrile, no leukocytosis. 2.Postherpetic neuralgia - neurontin. DVT ppx: SCDs DC planning: re-eval in AM. This patient was seen by Jonas Boo PA-C under the supervision of Doctor Shepherd.
[2017-12-10] MEDS: oxyCODONE 5 MG Tablet PO ×3 (14:00→22:28)
[2017-12-10] MEDS: Gabapentin 600 MG Tablet PO (21:08)
[2017-12-10] MEDS: MELATONIN 10 MG TABLET PO (21:08)
[2017-12-11] MEDS: Morphine 4 MG/ML Syringe IV ×2 (02:34→05:53)
[2017-12-11] MEDS: 0.9% NaCl Peripheral Flush Adult/Peds IV ×2 (02:35→05:53)
[2017-12-11 03:15] VITALS: BP 151/87; PULSE 105; RESP 17; TEMP 36.6; O2SAT 96
[2017-12-11 06:22] LABS: Absolute Lymphocyte Count 0.71 X10^3/ul (0.83-4.51); Absolute Neutrophil Count 8.6 X10^3/uL (2.0-7.7); Hematocrit 44.9 % (40-54); Hemoglobin 14.8 g/dl (13.0-16.5); Lymphocyte # 0.71 X10^3/ul (4.0); Lymphocyte % 6.8 % (19-41); Mean Corpuscular Hgb 30.5 pg (27.0-32.0); Mean Corpuscular Volume 92.4 fL (80-94); Mean Platelet Vol. 10.1 fl (6.2-12.0); Monocyte# 1.21 X10^3/uL; Monocyte% 11.5 % (0-10); Neutrophil # 8.57 X10^3/uL (2.7-7.7); Neutrophil % 81.5 % (47-70); Platelet Count 241 K/mm3 (150-450); RBC Distribution Width CV 13.5 % (11.6-14.6); RBC Distribution Width SD 45.8 fl (35.1-43.9); Red Blood Count 4.86 M/mm3 (4.6-6.2); White Blood Count 10.5 K/mm3 (4.4-11.0)
[2017-12-11 06:26] LABS: POSITIVE COUNT NO; POSITIVE DIFFERENTIAL NO; POSITIVE MORPHOLOGY NO
[2017-12-11 06:44] LABS: ALB/GLOB Ratio 1.1 RATIO (0.9-2.4); AST(SGOT) 107 U/L (15-37); Alanine Aminotransfer ALT/SGPT 177 U/L (16-61); Albumin, Serum 3.4 g/dL (3.2-5.0); Alkaline Phosphatase 141 U/L (45-117); Anion Gap 5 (5-15); BUN 9 mg/dL (7-18); BUN/Creat Ratio 10.5 RATIO (10-20); Chloride 107 mmol/L (98-107); Creatinine, Serum 0.86 mg/dL (0.70-1.30); EST Glomerular Filtration Rate 96 mL/min (>60); Est Glom Filt Rate - Afr Amer 117 mL/min (>60); Estimated Creatinine Clearance 115.12 ml/min; Globulin 3.1 g/dL (2.2-4.2); Glucose 128 mg/dL (74-106); Protein, Total 6.5 g/dL (6.4-8.2); Sodium Level 141 mmol/L (136-145)
[2017-12-11] MEDS: 0.9% Normal Saline 1,000 ML 125 ML IV (07:32)
[2017-12-11] MEDS: oxyCODONE 5 MG Tablet PO (07:35)
[2017-12-11 07:38] VITALS: BP 130/81; PULSE 75; RESP 16; TEMP 36.6; O2SAT 97
--- NOTE | 2017-12-11 07:48 | RAD_ITS ---
STUDY: X-RAY - ABDOMEN/PELVIS REASON FOR EXAM: Male, 61 years old. Abdominal distention. TECHNIQUE: Single AP view of the abdomen / pelvis. COMPARISON: None. FINDINGS: There is probable contrast in the region of the cecum. There is a nonspecific mildly distended gaseous small bowel loops and colon. The visualized liver, spleen and kidneys are grossly normal in size. Normal soft tissue structures. Degenerative changes in the lower lumbar spine. RAD/Abdomen Single View IMPRESSION: Nonspecific gaseous small bowel loops and colon. Electronically Signed: Oh Woodruff MD at 13:38 EDT Tel , Service support ,
--- NOTE | 2017-12-11 07:48 | PCM.PN.SRG ---
Patient Problems: Active and Suspected Problems Abdominal pain (Acute) Choledocholithiasis with obstruction (Acute) Subjective: Patient reports he is having right upper quadrant pain. He says the oxycodone are not helping with the morphine did offer some relief. He told the nursing staff yesterday that he was passing gas and he had a large dinner. Today he tells me that he is not passing gas. He has no nausea or vomiting. - Physical Exam General: Alert, Oriented x3, Cooperative HEENT: Atraumatic Lungs: Normal air movement Cardiovascular: Regular Rhythm, Tachycardic Abdomen: Soft, Distended, Tender - Tender in the right upper quadrant no guarding rebound, - - Incisions are clean dry and intact Vital Signs Temp Pulse Resp BP Pulse Ox 97.9 F 75 16 130/81 H 97 12/11/17 07:38 12/11/17 07:38 12/11/17 07:38 12/11/17 07:38 12/11/17 07:38 Oxygen Flow Rate (L/min) 2 Oxygen Delivery Method Room Air Weight: 219 lb 8.017 oz Body Mass Index (BMI) 26.0 Intake and Output for Last 24 Hours 12/09/17 12/10/17 12/11/17 23:59 23:59 23:59 Intake Total 3906 / 3906 6816.4 / 6816.4 894 / 894 Output Total 1825 / 1825 625 / 625 Balance 3906 / 3906 4991.4 / 4991.4 269 / 269 Laboratory Tests Past 24 Hrs 12/11/17 12/11/17 06:00 06:00 WBC 10.5 RBC 4.86 Hgb 14.8 Hct 44.9 MCV 92.4 MCH 30.5 MCHC 33.0 RDW 13.5 RDW Differential 45.8 H Plt Count 241 MPV 10.1 Immature Gran % (Auto) 0.200 Neut % (Auto) 81.5 H Lymph % (Auto) 6.8 L [place] % (Auto) 11.5 H Eos % (Auto) 0.0 Baso % (Auto) 0.0 Absolute Neuts (auto) 8.6 H Absolute Lymphs (auto) 0.71 L Total Counted Not Reportable Sodium 141 Potassium 4.0 Chloride 107 Carbon Dioxide 29.0 Anion Gap 5 BUN 9 Creatinine 0.86 Estim Creat Clear Calc 115.12 Est GFR (MDRD) Af Amer 117 Est GFR (MDRD) Non-Af 96 BUN/Creatinine Ratio 10.5 Glucose 128 H Calcium 8.0 L Total Bilirubin 1.70 H AST 107 H ALT 177 H Alkaline Phosphatase 141 H Total Protein 6.5 Albumin 3.4 Globulin 3.1 Albumin/Globulin Ratio 1.1 Medical Necessity - Tobacco Use Smoking Status: Current every day smoker Tobacco Use: Cigarettes Assessment/Plan Active and Suspected Problems Abdominal pain (Acute) Choledocholithiasis with obstruction (Acute) 61-year-old male with choledocholithiasis, gallstone pancreatitis, acute cholecystitis 1. The patient reports that he is not passing gas and he seems more distended than yesterday. I am concerned that he may be developing an ileus. I will get a KUB. 2. His white count is normal he can probably stop IV antibiotics today. I recommend a lot of ambulation. We will see how he does with his diet today and his bloating. If he begins to pass gas and his abdominal distention resolves he can be discharged home from my standpoint. If the KUB shows ileus he may need to be back down to clears and we will await more substantial bowel function. 3. The patient reports he is not getting adequate pain control from oxycodone. He reports a long history of heavy narcotic use. He says he was taking up to 30 mg of oxycodone at a time and taking Roxicet at other times. I do not feel comfortable prescribing such high doses of oxycodone. Enrrique Reyes MD Pager: [facility] [address] [place] [address] [address] [place] [address] Office:
--- NOTE | 2017-12-11 07:52 | PN.SURG_ITS ---
Patient Problems: Active and Suspected Problems Abdominal pain (Acute) Choledocholithiasis with obstruction (Acute) Subjective: Patient reports he is having right upper quadrant pain. He says the oxycodone are not helping with the morphine did offer some relief. He told the nursing staff yesterday that he was passing gas and he had a large dinner. Today he tells me that he is not passing gas. He has no nausea or vomiting. - Physical Exam General: Alert, Oriented x3, Cooperative HEENT: Atraumatic Lungs: Normal air movement Cardiovascular: Regular Rhythm, Tachycardic Abdomen: Soft, Distended, Tender - Tender in the right upper quadrant no guarding rebound, - - Incisions are clean dry and intact Vital Signs Temp Pulse Resp BP Pulse Ox 97.9 F 75 16 130/81 H 97 12/11/17 07:38 12/11/17 07:38 12/11/17 07:38 12/11/17 07:38 12/11/17 07:38 Oxygen Flow Rate (L/min) 2 Oxygen Delivery Method Room Air Weight: 219 lb 8.017 oz Body Mass Index (BMI) 26.0 Intake and Output for Last 24 Hours 12/09/17 12/10/17 12/11/17 23:59 23:59 23:59 Intake Total 3906 / 3906 6816.4 / 6816.4 894 / 894 Output Total 1825 / 1825 625 / 625 Balance 3906 / 3906 4991.4 / 4991.4 269 / 269 Laboratory Tests Past 24 Hrs 12/11/17 12/11/17 06:00 06:00 WBC 10.5 RBC 4.86 Hgb 14.8 Hct 44.9 MCV 92.4 MCH 30.5 MCHC 33.0 RDW 13.5 RDW Differential 45.8 H Plt Count 241 MPV 10.1 Immature Gran % (Auto) 0.200 Neut % (Auto) 81.5 H Lymph % (Auto) 6.8 L [place] % (Auto) 11.5 H Eos % (Auto) 0.0 Baso % (Auto) 0.0 Absolute Neuts (auto) 8.6 H Absolute Lymphs (auto) 0.71 L Total Counted Not Reportable Sodium 141 Potassium 4.0 Chloride 107 Carbon Dioxide 29.0 Anion Gap 5 BUN 9 Creatinine 0.86 Estim Creat Clear Calc 115.12 Est GFR (MDRD) Af Amer 117 Est GFR (MDRD) Non-Af 96 BUN/Creatinine Ratio 10.5 Glucose 128 H Calcium 8.0 L Total Bilirubin 1.70 H AST 107 H ALT 177 H Alkaline Phosphatase 141 H Total Protein 6.5 Albumin 3.4 Globulin 3.1 Albumin/Globulin Ratio 1.1 Medical Necessity - Tobacco Use Smoking Status: Current every day smoker Tobacco Use: Cigarettes Assessment/Plan Active and Suspected Problems Abdominal pain (Acute) Choledocholithiasis with obstruction (Acute) 61-year-old male with choledocholithiasis, gallstone pancreatitis, acute cholecystitis 1. The patient reports that he is not passing gas and he seems more distended than yesterday. I am concerned that he may be developing an ileus. I will get a KUB. 2. His white count is normal he can probably stop IV antibiotics today. I recommend a lot of ambulation. We will see how he does with his diet today and his bloating. If he begins to pass gas and his abdominal distention resolves he can be discharged home from my standpoint. If the KUB shows ileus he may need to be back down to clears and we will await more substantial bowel function. 3. The patient reports he is not getting adequate pain control from oxycodone. He reports a long history of heavy narcotic use. He says he was taking up to 30 mg of oxycodone at a time and taking Roxicet at other times. I do not feel comfortable prescribing such high doses of oxycodone. Enrrique Reyes MD Pager: [facility] [address] [place] [address] [address] [place] [address] Office:
[2017-12-11] MEDS: Magnesium Hydroxide 30 ML UDC PO (10:07)
[2017-12-11] MEDS: Senna/Docusate Sodium 1 Tablet PO (10:07)
[2017-12-11] MEDS: Morphine 2 MG/ML Syringe IV (10:07)
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
--- NOTE | 2017-12-11 13:05 | PCM.DC.SUM ---
Discharge Date and Diagnosis - Problem List Patient Problems: Active and Suspected Problems Abdominal pain (Acute) Choledocholithiasis with obstruction (Acute) Date of Admission: 12/08/17 Date of Discharge: 12/11/17 - Primary Discharge Diagnosis Active and Suspected Problems Choledocholithiasis with obstruction (Acute) Gallstone pancreatitis Cholangitis Cholecystitis Post herpetic neuralgia Hospital Course and Treatment Imaging Results: 12/11/17 07:48 KUB [Abdomen Single View] [RAD] Urgent Consults: Amy gómez surgery Operations: cholecystecomy, ERCP Procedures: None Summary of Care Provided: Physical exam on day of discharge: General: Restless, apparent discomfort Psych: A/Ox3 normal affect HEENT: NATAL[place]ARLA AT NC Neck: Supple NT CV: RRR no m/t/r/g/h Resp: CTA Abd: Hypoactive bowel sounds all 4 quadrants, tender to light touch right upper quadrant, mild abdominal bloating. Ext: DP2+= no edema Skin: W/D normal turgor Lymph/Heme: No active bleeding or adenopathy Neuro: CN2-12 intact Hospital course: The patient is a 61 year old M with a hx of post herpetic neuralgia who presented to the ER with chief complaint of SOB. He had elevated lipase, elevated LFTs, Bili, and a CT showing periportal lymphadenopathy, distended gallbladder normal appendix, postsurgical changes from prior right inguinal repair, and the follow-up ultrasound of his abdomen demonstrated distended gallbladder with gallstones and sludge, borderline wall thickening, mildly dilated common bile duct with ductal stones. General surgery was consulted he was felt to have gallstone pancreatitis, cholangitis, cholecystitis. He was placed on IV Zosyn. The following day he underwent ERCP with sphincterectomy and he was found to have an obstructing stone. He continued to have right upper quadrant pain the following day and continued elevation of T bili and was taken back to surgery for cholecystectomy. He was noted to have purulent drainage from his gallbladder and obstructing stones. He has significant right upper quadrant pain initially postop after surgery however was able to tolerate a diet at night. Zosyn was continued. The following morning he had worsening pain, no bowel activity and no flatus. There was a concern that he may have developed an ileus. He was sent for a KUB which is pending at this time. The patient then left the hospital AGAINST MEDICAL ADVICE before we had results back. His was not sure where he went but noticed his truck was gone. It is not clear at this time why he left. This patient was seen by Jonas Boo PA-C under the supervision of Doctor Joao. [] Discharge Diet: - - AMA Discharge Activity: - - AMA Home Medications: Medications to take at Discharge Cyclobenzaprine [Flexeril] 5 mg PO QHS 08/18/15 Gabapentin [Neurontin] 600 mg PO QHS 08/18/15 Lidocaine [Lidoderm Patch] 1 patch TP DAILY 12/08/17 Melatonin 10 mg PO QHS 12/08/17 Sumatriptan Succinate [Imitrex] 50 mg PO PRN PRN 12/08/17 Primary Care Physician: Megha Causey,Out of [Primary Care Provider] - Disposition: Against Medical Advice Minutes spent on discharge:: 35 Patient Condition:: Guarded Medical Necessity - Tobacco Use Smoking Status: Current every day smoker Tobacco Use: Cigarettes Meaningful Use Info Meaningful Use Diagnoses (Choose all that apply): None applicable
== END 2017-12-11 12:45 | disposition home or self-care (01) | DRG 418 ==
LOC: ED 19:29 → MS3 21:03
PROVIDERS: Physician Assistant; Surgery; Admitting Provider Internal Medicine; Emergency Provider Emergency Medicine; Visit Provider Internal Medicine
PROC: 0FC98ZZ Extirpation of Matter from Common Bile Duct, Via Natural or Artificial Opening Endoscopic (ICD-10-PCS; CPT 43260; principal; 2017-12-09 13:00)
PROC: 0FT44ZZ Resection of Gallbladder, Percutaneous Endoscopic Approach (ICD-10-PCS; CPT 47610; principal; 2017-12-10 09:30)
DX: K85.10 Biliary acute pancreatitis without necrosis or infection (principal); K80.43 Calculus of bile duct with acute cholecystitis with obstruction; B02.29 Other postherpetic nervous system involvement; F17.210 Nicotine dependence, cigarettes, uncomplicated; Z53.21 Procedure and treatment not carried out due to patient leaving prior to being seen by health care provider
CPT/HCPCS: 36415; 74018; 74177; 74300; 74328; 76000; 76705; 80053; 81001; 82150; 83605; 83690; 84484; 85025; 88304; 93005; 97802; 99283; 99406; J7030; J7050; J7120; Q9967; A4216; J2405

== ENCOUNTER → 2018-10-06 14:20 | Outpatient (CLI) | payer MEDICARE, MEDICAID, SELFPAY ==
[2017-12-10 07:48] VITALS: BMI 26.0
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
== END ==
DX: G89.4 Chronic pain syndrome (principal)
CPT/HCPCS: 72050; 72072; 72110

== ENCOUNTER 2019-05-09 10:30 | Outpatient (RCR) | payer MEDICARE, MEDICAID, SELFPAY ==
--- NOTE | 2019-01-18 11:01 | HP.PTEVAL ---
Patient's Visit Information NARENDRA LAI is a 63 year old M referred to Physical Therapy by YOKO DE LA VEGA with a diagnosis of Cervical disc degeneration. Date of Evaluation: 01/18/19 Physical Therapist: Edison Caldwell, YASMEENT, OCS, CSCS - Visit Plan Frequency: 2x /Week Duration: 4-6 Weeks Plan: 2x/week for 4-6 as needed for ... 1. NECk STM paraspinals and UT into rhombpoids. 2. isometric c/s strengthening. 3. postural strength. avoid alot of ROM to neck. Please be specific in these three treatments for 2-4 weeks and chart results. - Subjective Findings: Sent by pain management for neck pain. Discs are degenerated. Pain in neck constantly for 10 years. Needs PT before can have a nerve block. Has TENS unit therapy in the past. 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 Neck pain is central and L>R. X rays have shown arthirtis severe. Better lying down in good psotion on special pillows. SLEEP: wakes him up at times especially if he has been mowing or straining. Not employed: Stopped due to pain from shingles in L eye. Since 2005. Activities include gentl e yard duties, mopwing but they make him worse. Dresses, shower, cook clean all OK. Just apinful. Lives fiance in mobile home with steps to enter...my legs are fine. If works too much in yard will radiate pain to R shoulder. Sometimes gets numbness and tingling in R distal fingers but not often. Neck exercises: none regularly. [place] stretches but not regular with them as they can hurt. - Pain neck pain. Pain Intensity (Out of 10): 7 Pain Intensity Range: 5, 7 - Objective c/s AROM 45 L rotationa dn 35 R rotation with ext at 25 and all are painful. UE aROM WFL and pain with elevation. Tender to touch moderately in R.L paraspinals and into rhomboids, slightly in B UT. 2/3 bi and triceps reflexes. Sensation WNL to gross light touch in UE. Strength UE 4/5 without myotomal problems. Scap ROM fair. Posture is continually looking down and forward head and kyphotic T/S. Baseline: CARR R side adn neck pain R 8/10. Unwilling to do repeated motion as it will give him a headache which he gets every tohter day. Pt adamant to not move too much as he has done it before adn it will give him a CARR all week. Gait is normala nd balance is good. - Goals Goal 1:: Patient pain level down to 4/10 and 50% improved. Goal Time Frame: 4-6 Weeks Goal 2:: Pt I with improved posture without VC 75% of time Goal Time Frame: 4-6 Weeks Goal 3:: 60 B rotation ROM and 45 ext to allow for less painful aDLS Goal Time Frame: 4-6 Weeks Goal 4:: I approp HEP to minimize future problems. Goal Time Frame: 4-6 Weeks - Rehabilitation Potential Physical Therapy Diagnosis: Cervical disc degeneration Rehabilitation Potential: Questionable - Anticipated Interventions Patient/Client Instruction: Educate patient on: Condition, Plan of Care For the Purpose of:: To decrease pain, To improve nutrient delivery to tissue, To improve muscle performance and motor function, To improve ability of physical actions for home/community/work/leisure Therapeutic Exercise to Include: Strength training, Postural training For the Purpose of:: To decrease pain, To improve nutrient delivery to tissue Manual Therapy Techniques to Include: Soft tissue mobilization For the Purpose of:: To decrease pain, To increase ROM, To improve nutrient delivery to tissue Thermo therapy (hot pack): Yes For the Purpose of:: To decrease pain Thank you for the opportunity to evaluate your patient. For Medicare and Medicare HMO plans, please review the plan of care and approve it. It will need to be FAXED BACK to us at [phone] for Medicare purposes. For Medicare only, by signing this I certify the plan of care. Please let me know if there are questions or concerns regarding this plan of care. Physician Signature: Date:
--- NOTE | 2019-02-21 13:50 | HP.PTREVAL_ITS ---
YOKO DE LA VEGA, It has been my pleasure to treat NARENDRA LAI over the last 5 visits for Cervical disc degeneration. Please see the progress note below for an update on the physical therapy plan of care! Subjective: Gets a day relief from the treatment from [facility] then the neck pain comes back. Gets 3 days relief from scapular pain. Wants to ask pain doctor for more therapy and will likely have injcetion in neck. to Dr. Honeycutt on 03/01. Not much change in ROM as he is still afraid of nerve twinges. Been doing c/s retraction at home but have been busy working on screened in [employer] due to mosquitoes. Objective/Function: 60 R rotation. 70 L rotation. 42 extension. These are much improved. Posture is better adn can retract with less pain, still tends to forward head and elevated scapula. Overall patient edithves massage to be the main helper and he wishes only to see one ENTRY SPECIALIST who is on vacation next week. Since he cannot get in to see that ENTRY SPECIALIST, he wishes to wait until see doctor on 03/01 adn to try to get LB included on script, have that evaluated and get more visits for his backa nd neck massage. He is skeptical that strength or stretching will be helpful. Plan Plan: Pt to nasreen fter doctor visit for further approval of neck or adding LB to script of doctor agrees and having that evaluated. Neck plan would be to continue STM and gradually add cervical stretching and cervical postural strength. Goals Goal 1:: Patient pain level down to 4/10 and 50% improved. Goal Time Frame: 4-6 Weeks Goal Progress: short duration. Goal 2:: Pt I with improved posture without VC 75% of time Goal Time Frame: 4-6 Weeks Goal Progress: Progressing Goal 3:: 60 B rotation ROM and 45 ext to allow for less painful aDLS Goal Time Frame: 4-6 Weeks Goal Progress: Progressing Goal 4:: I approp HEP to minimize future problems. Goal Time Frame: 4-6 Weeks Goal Progress: not yet. approp. Anticipated Interventions Patient/Client Instruction: Educate patient on: Condition, Plan of Care For the Purpose of:: To decrease pain, To improve nutrient delivery to tissue, To improve muscle performance and motor function, To improve ability of physical actions for home/community/work/leisure Therapeutic Exercise to Include: Strength training, Postural training For the Purpose of:: To decrease pain, To improve nutrient delivery to tissue Manual Therapy Techniques to Include: Soft tissue mobilization For the Purpose of:: To decrease pain, To increase ROM, To improve nutrient delivery to tissue Thermo therapy (hot pack): Yes For the Purpose of:: To decrease pain Please do not hesitate to contact me at [phone] by phone or if you have questions or concerns regarding this new plan of care! Sincerely, Edison Caldwell, DPT, OCS, CSCS
--- NOTE | 2019-03-09 11:44 | HP.PTREVAL ---
YOKO DE LA VEGA, It has been my pleasure to treat NARENDRA LAI over the last 6 visits for Cervical disc degeneration. Please see the progress note below for an update on the physical therapy plan of care! Subjective: Right cevical spine .Symptoms worse with turning cervical spine ,lifting ,looking down. C/O parathesia/tingling in right hand> left hand with sleeping.Shoulder baldes is worse.60 % better with scapular.Patient c/o CARR . Patient conts to have pain management. Objective/Function: POSTURE: mild foward posture. PALAPTION: tender UT/levator. NEURO: inintact ,reflexes C5-6-7 2/3. MMT: 4/5 GROSSLY. CERVICAL ROM: flexion min loss ,extension min/mod loss,lateral flexion /rotation min loss with pain right side ,retraction increases symptoms NW. ASSESSORY MOBILITY TESTING: MOD limited thoracic T1-2,C-4-7. -ANR Plan Plan: PATIENT COULD CONTINUE TO BENIFIT FOR PT FOR CERVICAL SPINE. CONT WITH POC WOTH MANUAL THERAPY,CERVICAL POSTURAL EX'SM,STRENGTHENING Goals Goal 1:: Patient pain level down to 4/10 and 50% improved. Goal Time Frame: 4-6 Weeks Goal Progress: short duration. Goal 2:: Pt I with improved posture without VC 75% of time Goal Time Frame: 4-6 Weeks Goal Progress: Progressing Goal 3:: 60 B rotation ROM and 45 ext to allow for less painful aDLS Goal Time Frame: 4-6 Weeks Goal Progress: Progressing Goal 4:: I approp HEP to minimize future problems. Goal Time Frame: 4-6 Weeks Goal Progress: not yet. approp. Anticipated Interventions Patient/Client Instruction: Educate patient on: Condition, Plan of Care For the Purpose of:: To decrease pain, To improve nutrient delivery to tissue, To improve muscle performance and motor function, To improve ability of physical actions for home/community/work/leisure Therapeutic Exercise to Include: Strength training, Postural training For the Purpose of:: To decrease pain, To improve nutrient delivery to tissue Manual Therapy Techniques to Include: Soft tissue mobilization For the Purpose of:: To decrease pain, To increase ROM, To improve nutrient delivery to tissue Thermo therapy (hot pack): Yes For the Purpose of:: To decrease pain Please do not hesitate to contact me at [phone] by phone or if you have questions or concerns regarding this new plan of care! Sincerely, Nato Leggett, PT, Cert MDT, OCS
--- NOTE | 2019-03-30 08:28 | HP.PTEVAL2_ITS ---
Patient's Visit Information NARENDRA LAI is a 63 year old M referred to Physical Therapy by YOKO DE LA VEGA with a diagnosis of Lumbago sciatica. Date of Evaluation: 03/30/19 Physical Therapist: Edison Caldwell, YASMEENT, OCS, CSCS - Visit Plan Frequency: 3x /Week Duration: 4-6 Weeks Plan: 3x/week for 3-6 weeks for. 1. LB rotation and ext ROM progressing to yoga flow for HEP. 2. stretch ITB and quads and progress to HEP, strefngthen hips. 3. Core strength with postural and body mechanics focus. 4. May do STM or ESTIM if bad day with pain. - Subjective Findings: Had injections in neck earlier in week. Feeling better in neck. Low back has been hurting 20 years intermittent at first and now more consistent. Notices it daily. 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 Daily LBP middle LB and down into posterior R hip. Legs OK, denies numbness tingling and weakness. Pain is worse in LB with standing. 4/10 pain at rest but has been up to 8/10 in the last week with tedious work like drilling upward. Keeps going with activity. Able to get dressed and shower and bathroom, just barrels through. Slowing down aint no option. I need to lose weight! Sleep is interrupted in that rolling can be painful. Has to use pillows between legs or it really hurts. Does some stretching ex for HS. On disability from shingles that he had in L face years ago. Spends day doing odd jobs around the house. Worse if he overdoes it. - Pain LBP Intensity: 4 Pain Intensity Range: 4, 8 - Objective Objective: Walks I but very stiff, no rotation. Transfers I, hesitant at times with LB movement. Tender in R upper glut adn paraspinals to light touch. L/S AROM ext max limited adn painful centrally, flexion not painful and min limited, SB contralateral pain and min stiff. repeated ext increases ROM and NE pain. reflexes 2/3 patella and achilles. Sensation LE WNL to gross light touch. Strength Hip abd and ext 4-, flexion and add 4+. knee flexion and ext 4+. ankles 4+. Ankle and Knee AROM wFL. Posture is hunched over and is a sacral sitter, stays flexed in low back throughout treatment. - Goals Goal 1:: Low back pain 0 at rest and 3/10 at worst adn 75% improved. Goal Time Frame: 4-6 Weeks Goal 2:: i appropr LB exercises to minimize future problems Goal Time Frame: 4-6 Weeks Goal 3:: patient sleep without interruption from LB at night. Goal Time Frame: 4-6 Weeks Goal 4:: Patient walk without obvious stiffness and moderate rotation in LB Goal Time Frame: 4-6 Weeks Goal 5:: Oswestry improved by 20% Goal Time Frame: 4-6 Weeks - Rehabilitation Potential Physical Therapy Diagnosis: Degenerative changes in Low back leading to pain. Rehabilitation Potential: Fair - Anticipated Interventions Patient/Client Instruction: Educate patient on: Condition, Plan of Care For the Purpose of:: To decrease pain, To increase ROM, To improve ability of physical actions for home/community/work/leisure Therapeutic Exercise to Include: Strength training, Postural training, Flexibilty training, Gait and locomotor training, Passive ROM, Active ROM, Dynamic Lumbar Stabilization For the Purpose of:: To decrease pain, To increase ROM, To improve muscle performance and motor function, To improve ability of physical actions for home/community/work/leisure, To improve gait and locomotor functions Manual Therapy Techniques to Include: Mobilization, Soft tissue mobilization For the Purpose of:: To decrease pain, To increase ROM, To improve nutrient delivery to tissue TENS: Yes Thermo therapy (hot pack): Yes For the Purpose of:: To decrease pain Thank you for the opportunity to evaluate your patient. For Medicare and Medicare HMO plans, please review the plan of care and approve it. It will need to be FAXED BACK to us at [phone] for Medicare purposes. For Medicare only, by signing this I certify the plan of care. Please let me know if there are questions or concerns regarding this plan of care. Physician Signature: Date:
--- NOTE | 2019-04-26 14:16 | HP.PTDCSUM ---
HP - PT D/C Summary It has been my pleasure to treat NARENDRA LAI under orders from YOKO DE LA VEGA, for the diagnosis of Cervical disc degeneration for a total of 9 visit(s). Discharge Date: 04/26/19 Please see the following information for a summary of their discharge status. - Subjective Subjective: Had neck injection 3 weeks ago and it really helped. CARR stopped 3 days after the injection. Stretching at home helps to. Hasn't had much neck pain lately except once in a while. No arm symptoms. Activities are pretty normal as far as neck goes.. Sleep is not great due to LBP but neck not keeping him up. R hip is out. Doctor is possibly looking into injection in hip. - Pain neck pain. Pain Intensity (Out of 10): 0 - Overall Improvement % Improvement: 99 - Objective Objective/Function: 50 ext adn 70 B rotation c/s without pain today, Head slightly protruded but improved posture. No tenderness in c/s muscles today. Overall looking excellent adn doing wella s far as neck is concerned. - Goals Goal 1:: Patient pain level down to 4/10 and 50% improved. Goal Progress: Goal Met, neck Goal 2:: Pt I with improved posture without VC 75% of time Goal Progress: Goal Met Goal 3:: 60 B rotation ROM and 45 ext to allow for less painful aDLS Goal Progress: Goal Met Goal 4:: I approp HEP to minimize future problems. Goal Progress: Goal Met, ROM - Plan Plan: d/c neck. Pt to continue scap ROM, neck ROM and postural focus. - D/C Information Discharge Comments: Pt doing well with neck pain and will cotninue HEP adn contact doctor if problems return. If there are questions or concerns regarding this patient's physical therapy, please feel free to call me at [phone]. Thank you for the referral of this patient. Sincerely, Edison Caldwell, DPT, OCS, CSCS
== END 2019-05-09 19:00 | disposition home or self-care (01) ==
LOC: PT 10:30
DX: M50.321 Other cervical disc degeneration at C4-C5 level (principal); M79.18 Myalgia, other site; M54.41 Lumbago with sciatica, right side
CPT/HCPCS: 97110; 97140; 97162; 97530

== ENCOUNTER 2021-10-09 11:40 | Outpatient (CLI) | payer MEDICARE, MEDICAID, SELFPAY ==
--- NOTE | 2021-10-09 12:05 | US_ITS ---
STUDY: RENAL ULTRASOUND - COMPLETE REASON FOR EXAM: Male, 65 years old. ACUTE right FLANK PAIN TECHNIQUE: Ultrasound evaluation of the kidneys was performed with real-time and static acevedo-scale imaging. COMPARISON: None. FINDINGS: RIGHT KIDNEY: Normal location of the right kidney, which is normal in size. The right kidney measures 10.2 cm x 5.7 cm x 5.1 cm. There is a normal cortex of the right kidney. The renal cortex measures 1.8 cm. There is no right renal mass or cyst. There are no right renal calculi. There is no right hydronephrosis. DISTAL RIGHT URETER: There is non-visualization of the distal right ureter. There is no demonstrated right ureterovesical junction calculus. There is a visualized right ureteral jet. LEFT KIDNEY: Normal location of the left kidney, which is normal in size. The left kidney measures 11.2 cm x 5 cm x 5.5 cm. There is a normal cortex of the left kidney. The renal cortex measures 1.7 cm. There is no left renal mass or cyst. There are no left renal calculi. There is no left hydronephrosis. DISTAL LEFT URETER: There is non-visualization of the distal left ureter. There is no demonstrated left ureterovesical junction calculus. There is no demonstrated left ureteral jet. BLADDER: The distended urinary bladder has a volume of 204 ml. There is a normal wall thickness of the distended urinary bladder. There is no demonstrated mass within the urinary bladder. There are no demonstrated bladder calculi. US/Kidney and Bladder IMPRESSION: Normal ultrasound of the kidneys and urinary bladder. Electronically Signed: Tomas Avalos MD at 13:43 EST ,
== END 2021-10-09 23:59 | disposition home or self-care (01) ==
PROVIDERS: Visit Provider Family Medicine
DX: R10.9 Unspecified abdominal pain (principal)
CPT/HCPCS: 76770

== ENCOUNTER → 2024-05-11 | Outpatient (CLI) | payer MEDICARE, MEDICAID, SELFPAY ==
[2024-05-11 15:38] LABS: AST(SGOT) 86 U/L (15-37); Alanine Aminotransfer ALT/SGPT 141 U/L (16-61); Albumin, Serum 3.7 g/dL (3.2-5.0); Alkaline Phosphatase 61 U/L (45-117); Anion Gap 6 (5-15); BUN 12 mg/dL (7-18); BUN/Creat Ratio 12.8 RATIO (10-20); Calcium,Total 8.9 mg/dL (8.5-10.1); Chloride 107 mmol/L (98-107); Cholesterol 104 mg/dL (200); Creatinine, Serum 0.94 mg/dL (0.70-1.30); EST Glomerular Filtration Rate 85 mL/min (>60); Est Glom Filt Rate - Afr Amer 103 mL/min (>60); Globulin 3.8 g/dL (2.2-4.2); Glucose 91 mg/dL (74-106); High Density Lipoprotein 40 mg/dL; Potassium 3.9 mmol/L (3.5-5.1); Protein, Total 7.5 g/dL (6.4-8.2); Sodium Level 139 mmol/L (136-145); Triglycerides 47 mg/dL; Very Low Density Lipoprotein 9 mg/dL (5-40)
== END | disposition home or self-care (01) ==
PROVIDERS: PCP Family Medicine; Referring Provider Family Medicine; Visit Provider Family Medicine
DX: F10.90 Alcohol use, unspecified, uncomplicated (principal)
CPT/HCPCS: 36415; 80053; 80061

== ENCOUNTER → 2025-05-31 | Outpatient (CLI) | payer MEDICARE, SELFPAY ==
[2025-05-31 15:16] LABS: AST(SGOT) 109 U/L (<=37); Alanine Aminotransfer ALT/SGPT 174 U/L (<=46); Albumin, Serum 3.9 g/dL (3.4-4.8); Alkaline Phosphatase 69 U/L (40-129); Anion Gap 10 (5-15); BUN 15 mg/dL (4-19); BUN/Creat Ratio 17.3 RATIO (10-20); Calcium,Total 9.1 mg/dL (7.6-11.0); Carbon Dioxide 25.9 mmol/L (21.0-32.0); Chloride 103 mmol/L (98-108); Cholesterol 99 mg/dL (<=200); Globulin 3.5 g/dL (2.2-4.2); Glucose 116 mg/dL (70-99); Low Density Lipoprotein Calc. 58 mg/dL; Potassium 4.4 mmol/L (3.3-5.1); Triglycerides 48 mg/dL; Very Low Density Lipoprotein 10 mg/dL (5-40); cholesterol:hdl ratio screen 3.18
== END | disposition home or self-care (01) ==
LOC: MTLAB 11:11
PROVIDERS: PCP Family Medicine; Referring Provider Family Medicine; Visit Provider Family Medicine
DX: F10.90 Alcohol use, unspecified, uncomplicated (principal)
CPT/HCPCS: 36415; 80053; 80061